=== PATIENT | male | born 1950 | race African-American/Black ===

== ENCOUNTER 2016-11-08 20:06 | Inpatient (IN) | payer OTHER, MEDICARE ==
[2016-11-08] VITALS (8 sets, daily range): BP systolic 106–209; BP diastolic 67–112; PULSE 80–129; RESP 12–14; TEMP 95.3; O2SAT 100
[~2016-11-08] VITALS: Ht 175.3 cm; Wt 54.8 kg
[~2016-11-08 20:06] MED LIST: AMLO10 PO; ASPI81TA82 PO; CARV12.52 PO; FURO20 PO; GABA300C3 PO; HYDR10SO PO; NITR0.4D2 TD; NOVO70IN2 SC; PROT40TA PO; TYLE500T
[2016-11-08] MEDS ORDERED: ETOMIDATE 20 MG/10 ML VIAL IV PUSH ONE (20:15)
[2016-11-08] MEDS ORDERED: ROCURONIUM INJ 50 MG/5 ML VIAL IV ONE (20:15)
[2016-11-08] MEDS: PROPOFOL 1000 MG/100 ML INJ 100 ML IV SCH (20:23)
[2016-11-08] MEDS ORDERED: NITROGLYCERIN-DEXTROSE INJ 250 ML IV SCH (20:30)
--- NOTE | 2016-11-08 20:44 | PD ---
HPI Chief Complaint: Cardiac Complaint Time Seen by Provider: 20:10 Travel History International Travel<30 days: No Contact w/Intl Traveler<30days: No Traveled to known affect area: No History of Present Illness HPI 66-year-old male was brought in by EMS for respiratory distress and altered mental status. Patient started having shortness of breath this morning. EMS was called this evening. Patient was found tachypneic and lethargic. Patient started having increasing lethargy on the way to the ED. Upon arrival to ED patient unable to provide any information, in respiratory distress. Patient has history of end-stage renal disease on dialysis Friday and and Friday. 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 Per EMS, patient has not missed his dialysis schedule. Patient has history of diabetes, hypertension And CHF. PFSH Past Medical History Arthritis: Yes Asthma: No Autoimmune Disease: No Blood Disorders: No Heart Rhythm Problems: No Cancer: No Cardiovascular Problems: Yes (OK 10/2013, CHF) High Cholesterol: Yes Chest Pain: No Congestive Heart Failure: Yes COPD: Yes Cerebrovascular Accident: No Diabetes: Yes (INSULIN DEPENDENT) Patient Takes Glucophage: No Endocrine: Yes Gastrointestinal Disorders: No GERD: No Glaucoma: No Gout: Yes Genitourinary: Yes Headaches: Yes Hepatitis: No Hiatal Hernia: No Hypertension: Yes Immune Disorder: No Implanted Vascular Access Dvce: No Kidney Stones: Yes Medical other: No Musculoskeletal: Yes (ARTHRITIS, NECK PROBLEMS) Neurologic: Yes (NEUROPATHY HANDS AND FEET) Psychiatric: No Reproductive: No Respiratory: Yes (COPD) Integumentary: No Migraines: Yes Myocardial Infarction: Yes (2012) Renal Failure: Yes (STAGE 4-PT OF DR. FRANKLIN) Seizures: No Sleep Apnea: No Thyroid Disease: No Ulcer: No Past Surgical History AICD: No Arteriovenous Shunt: Yes (RIGHT ARM) Body Medical Devices: DIALYSIS CATHETER IN CHEST Joint Replacement: No Pacemaker: No Thoracic Surgery: Yes (DIALYSIS CATHETER INSERTED 01/2014) Tonsillectomy: Yes Other Surgery: Yes (PERMACATH/FISTULA) Social History Alcohol Use: No (UNABLE TO OBTAIN) Tobacco Use: Yes (PACK A DAY ) Substance Use: No (UNABLE TO OBTAIN) Allergies-Medications (Allergen,Severity, Reaction): Coded Allergies: No Known Allergies (Verified , 11/08/16) Reported Meds & Prescriptions Reported Meds & Active Scripts Active Active Prescriptions or Reported Medications Unobtainable Review of Systems General / Constitutional: No: Fever Eyes: No: Visual changes HENT: No: Headaches Cardiovascular: No: Chest Pain or Discomfort Respiratory: Positive: Shortness of Breath Gastrointestinal: No: Abdominal Pain Genitourinary: No: Dysuria Musculoskeletal: No: Pain Skin: No Rash Neurologic: No: Weakness Psychiatric: No: Depression Endocrine: No: Polydipsia Hematologic/Lymphatic: No: Easy Bruising Physical Exam Narrative GENERAL: Well-nourished, well-developed patient. SKIN: Warm and dry. HEAD: Normocephalic. EYES: No scleral icterus. No injection or drainage. Pupil 3 mm equal reactive. NECK: Supple, trachea midline. No JVD or lymphadenopathy. CARDIOVASCULAR: Regular rate and rhythm without murmurs, gallops, or rubs. RESPIRATORY: Diffuse rhonchi bilaterally. No wheezes. GASTROINTESTINAL: Abdomen soft, non-tender, nondistended. MUSCULOSKELETAL: No cyanosis, or edema. BACK: Nontender without obvious deformity. No CVA tenderness. Neurologic exam: Patient's lethargic, becoming obtunded, in respiratory distress. Patient moves extremity minimally. No obvious focal neurological deficit. Data Data Last Documented VS Vital Signs Date Time Temp Pulse Resp B/P Pulse Ox O2 Delivery O2 Flow Rate FiO2 11/08/16 23:00 90 12 106/67 100 Ventilator 11/08/16 20:56 40 11/08/16 20:08 95.3 Orders Etomidate Inj (Amidate Inj) (11/08/16 20:15) Rocuronium Inj (Zemuron Inj) (11/08/16 20:15) Propofol 1000 Mg/100 Ml Inj (Diprivan 10 (11/08/16 20:15) ^ Infusion (11/08/16 20:10) RASS (11/08/16 20:10) Neurological Rass Scale HERMILO.Q2H (11/08/16 20:10) Complete Blood Count With Diff (11/08/16 20:11) Comprehensive Metabolic Panel (11/08/16 20:11) Creatine Kinase (Cpk) (11/08/16 20:11) Troponin I (11/08/16 20:11) Prothrombin Time / Inr (Pt) (11/08/16 20:11) Act Partial Throm Time (Ptt) (11/08/16 20:11) Blood Culture (11/08/16 20:11) Magnesium (Mg) (11/08/16 20:11) Thyroid Stimulating Hormone (11/08/16 20:11) Phosphorus (Po4) (11/08/16 20:11) Chest, Single Ap (11/08/16 20:11) Iv Access Insert/Monitor (11/08/16 20:11) Ecg Monitoring (11/08/16 20:11) Oximetry (11/08/16 20:11) Nitroglycerin-Dextrose Inj (Nitroglyceri (11/08/16 20:30) Arterial Blood Gas (Abg) (11/08/16 ) Ct Brain W/O Iv Contrast(Rout) (11/08/16 20:43) Electrocardiogram (11/08/16 20:15) ^ Blood Flow Rate (11/08/16 21:11) ^ Dialysate Flow Rate (11/08/16 21:11) ^ Dialyzer (11/08/16 21:11) ^ Concentrate (11/08/16 21:11) ^ Acid Concentrate (11/08/16 21:11) ^ Length Of Dialysis (11/08/16 21:11) ^ Frequency Of Dialysis (11/08/16 21:11) ^ Dialysis Obtain (11/08/16 21:11) ^ Needle Size (11/08/16 21:11) ^ Dialysis Schedule (11/08/16 21:11) Resp Oxygen Campos C Titrat 1-4 L (11/08/16 ) ^ Dialysis Weight (11/08/16 21:11) ^ Obtain As Needed (11/08/16 21:11) Sodium Chlor 0.9% 1000 Ml Inj (Ns 1000 M (11/08/16 21:11) Heparin Inj (Heparin Inj) (11/08/16 21:15) Sodium Chlor 0.9% 1000 Ml Inj (Ns 1000 M (11/08/16 21:11) Sodium Chlor 0.9% 1000 Ml Inj (Ns 1000 M (11/08/16 21:11) Mannitol Inj (Mannitol Inj) (11/08/16 21:15) Albumin 25% Inj (Albumin 25% Inj) (11/08/16 21:15) Sodium Chloride 0.9% Flush (Ns Flush) (11/08/16 21:15) Heparin Inj (Heparin Inj) (11/08/16 21:15) Gentamicin (Dialysis) Inj (Gentamicin (D (11/08/16 21:15) Ondansetron Inj (Zofran Inj) (11/08/16 21:15) Acetaminophen (Tylenol) (11/08/16 21:15) Diphenhydramine (Benadryl) (11/08/16 21:15) Nitroglycerin Sl (Nitrostat Sl) (11/08/16 21:15) Clonidine (Catapres) (11/08/16 21:15) Gelatin 12 Mm/7 Mm Top (Gelfoam 12 Mm/7 (11/08/16 21:15) Neurological Rass Scale Q30MX2,Q2HX4,Q4H (11/08/16 23:04) Fentanyl Drip (Fentanyl Drip) (11/08/16 23:15) Fentanyl Drip (Fentanyl Drip) (11/08/16 23:23) Midazolam Inj (Versed Inj) (11/08/16 23:45) Neurological Rass Scale Q30MX2,Q2HX4,Q4H (11/08/16 23:42) Midazolam Inj (Versed Inj) (11/08/16 23:42) Admit To Inpatient (11/08/16 ) Inpatient Certification (11/08/16 ) Code Status (11/08/16 23:45) Vital Signs (Adult) HERMILO.Q1H (11/08/16 23:45) Activity Bed Rest (11/08/16 23:45) ^ Core Shaper / Telemetry (11/08/16 23:45) Intake + Output HERMILO.Q8H (11/08/16 23:45) Bedside Glucose HERMILO.BGM (11/08/16 23:45) Diet Npo (11/09/16 Breakfast) Sodium Chloride 0.9% Flush (Ns Flush) (11/08/16 23:45) Sodium Chloride 0.9% Flush (Ns Flush) (11/09/16 09:00) Acetaminophen (Tylenol) (11/08/16 23:45) Albuterol-Ipratropium Neb (Duoneb Neb) (11/09/16 04:00) Albuterol-Ipratropium Neb (Duoneb Neb) (11/08/16 23:45) Chlorhexidine 0.12% Liq (Peridex 0.12% L (11/09/16 08:00) Lansoprazole Odt (Prevacid Odt) (11/09/16 09:00) Complete Blood Count With Diff (11/09/16 06:00) Comprehensive Metabolic Panel (11/09/16 06:00) Chest, Single Ap (11/09/16 06:00) Resp Pulse Oximetry (11/08/16 ) Resp Ventilation- Volume (11/08/16 ) Consult Cm-Day 5 Ltac Eval (11/08/16 ) Heparin Inj (Heparin Inj) (11/08/16 23:45) Scd Bilateral/Knee High HERMILO.BID (11/08/16 23:45) ^ Initiate Protocol (11/08/16 23:45) ^ Instruction (11/08/16 23:45) [facility] Nursing Information (11/08/16 23:45) Chlorhexidine 2% Cloth (Chlorhexidine 2% (11/09/16 04:00) Chlorhexidine 2% Cloth (Chlorhexidine 2% (11/08/16 23:45) Mrsa Pcr Surveillance (11/08/16 23:45) Propofol 1000 Mg/100 Ml Inj (Diprivan 10 (11/08/16 23:45) ^ Infusion (11/08/16 23:45) Ventilator Weaning Readiness HERMILO.DAILY@0800 (11/08/16 23:51) Resp Spont Breath Trial (Sbt) (11/08/16 ) Midazolam Inj (Versed Inj) (11/09/16 00:00) Hydralazine Inj (Apresoline Inj) (11/09/16 00:00) Admit Order (Ed Use Only) (11/08/16 23:53) Labs Laboratory Tests Test 11/08/16 11/08/16 20:30 20:50 White Blood Count 11.8 TH/MM3 Red Blood Count 3.91 MIL/MM3 Hemoglobin 12.7 GM/DL Hematocrit 38.1 % Mean Corpuscular Volume 97.3 FL Mean Corpuscular Hemoglobin 32.4 PG Mean Corpuscular Hemoglobin 33.3 % Concent Red Cell Distribution Width 13.9 % Platelet Count 111 TH/MM3 Mean Platelet Volume 10.0 FL Neutrophils (%) (Auto) 56.4 % Lymphocytes (%) (Auto) 33.0 % Monocytes (%) (Auto) 8.1 % Eosinophils (%) (Auto) 1.9 % Basophils (%) (Auto) 0.6 % Neutrophils # (Auto) 6.6 TH/MM3 Lymphocytes # (Auto) 3.9 TH/MM3 Monocytes # (Auto) 1.0 TH/MM3 Eosinophils # (Auto) 0.2 TH/MM3 Basophils # (Auto) 0.1 TH/MM3 CBC Comment DIFF FINAL Differential Comment Prothrombin Time 12.5 SEC Prothromb Time International 1.1 RATIO Ratio Activated Partial 28.7 SEC Thromboplast Time Sodium Level 142 MEQ/L Potassium Level 4.9 MEQ/L Chloride Level 103 MEQ/L Carbon Dioxide Level 27.3 MEQ/L Anion Gap 12 MEQ/L Blood Urea Nitrogen 43 MG/DL Creatinine 4.72 MG/DL Estimat Glomerular Filtration 15 ML/MIN Rate Random Glucose 201 MG/DL Calcium Level 8.7 MG/DL Phosphorus Level 5.6 MG/DL Magnesium Level 2.3 MG/DL Total Bilirubin 0.5 MG/DL Aspartate Amino Transf 34 U/L (AST/SGOT) Alanine Aminotransferase 29 U/L (ALT/SGPT) Alkaline Phosphatase 91 U/L Total Creatine Kinase 150 U/L Troponin I 0.13 NG/ML Total Protein 8.0 GM/DL Albumin 3.4 GM/DL Thyroid Stimulating Hormone 5.600 uIU/ML 3rd Gen Blood Gas Puncture Site RT FEMORAL Blood Gas Patient Temperature 98.6 Blood Gas HCO3 27 mmol/L Blood Gas Base Excess 0.1 mmol/L Blood Gas Oxygen Saturation 92 % Arterial Blood pH 7.22 Arterial Blood Partial 68 mmHg Pressure CO2 Arterial Blood Partial 392 mmHG Pressure O2 Arterial Blood Oxygen Content 16.3 Vol % Arterial Blood 5.7 % Carboxyhemoglobin Arterial Blood Methemoglobin 1.8 % Blood Gas Hemoglobin 11.8 G/DL Oxygen Delivery Device VENTILATOR Blood Gas Ventilator Setting AC12/450 8 PEEP Blood Gas Inspired Oxygen 80 % MDM Medical Decision Making Medical Screen Exam Complete: Yes Emergency Medical Condition: Yes Medical Record Reviewed: Yes Differential Diagnosis Differential diagnosis including CHF, pneumonia, PE, pneumothorax, TIA, CVA, electrolyte imbalance, sepsis. Narrative Course 66-year-old male in respiratory distress and altered mental status. History of end-stage renal disease on dialysis. Physical exam consistent with fluid overload and CHF. Patient's hypertensive. Patient was intubated. Nitro drip started. Architecture Department Chair, Dr. Cali was contacted. Requesting emergent dialysis. Diagnosis Primary Impression: Acute respiratory failure Qualified Code: J96.00 - Acute respiratory failure, unspecified whether with hypoxia or hypercapnia Additional Impressions: CHF exacerbation Qualified Code: I50.43 - Acute on chronic combined systolic and diastolic congestive heart failure End stage renal disease on dialysis Scripts Unable to Obtain Active Prescriptions or Reported Meds Milton Piedra MD Nov 08, 2016 20:44
--- NOTE | 2016-11-08 20:46 | RADRPT ---
EXAM DATE/TIME: 11/08/2016 20:12 [facility] COMPARISON: CHEST SINGLE AP, September 21, 2015, 5:27. INDICATIONS : SOB MEDICAL HISTORY : None. SURGICAL HISTORY : Stent placement. ENCOUNTER: Initial ACUITY: 1 day PAIN SCORE: Non-responsive. LOCATION: chest FINDINGS: A single view of the chest demonstrates the lungs to be symmetrically aerated without evidence of mas s, infiltrate or effusion. A few scattered nodular densities in the upper lobes may be calcified gran ulomas. 4 cm above the luis. The cardiomediastinal contours are unremarkable. Osseous structures a re intact. Right-sided stent again seen. CONCLUSION: Adequate placement of endotracheal tube. A few scattered nodular densities are seen in the upper lobe s may be calcified granulomas. Jimbo Xiong MD on November 08, 2016 at 20:42 Board Certified Radiologist. This report was verified electronically.
[2016-11-08] MEDS: HEPARIN SODIUM - SQ 10,000 UNITS/ML VIAL SQ SCH (21:00)
[2016-11-08 21:07] LABS: APTT (PATIENT) 28.7 SEC (24.3-30.1); INTERNATIONAL NORMALIZED RATIO 1.1 RATIO; PROTHROMBIN TIME - PATIENT 12.5 SEC (9.8-11.6)
[2016-11-08] MEDS ORDERED: SODIUM CHLOR 0.9% 1000 ML INJ 1,000 ML IV PRN ×3 (21:11)
[2016-11-08] MEDS ORDERED: ACETAMINOPHEN 325 MG TAB PO PRN ×2 (21:15→23:45)
[2016-11-08] MEDS ORDERED: ALBUMIN HUMAN 25% 25 GM/100 ML BAGP IV PRN (21:15)
[2016-11-08] MEDS ORDERED: diphenhydrAMINE HCL 25 MG CAP PO PRN (21:15)
[2016-11-08] MEDS ORDERED: MANNITOL 12.5 GM/50 ML VIAL IV PRN (21:15)
[2016-11-08] MEDS ORDERED: HEPARIN SODIUM - IV 10,000 UNITS/10 ML VIAL PRN (21:15)
[2016-11-08] MEDS ORDERED: GELATIN 12 MM/7 MM FOAM TOP PRN (21:15)
[2016-11-08] MEDS ORDERED: GENTAMICIN SULFATE (DIALYSIS USE ONLY) 20 MG/2 ML VIAL IV PRN (21:15)
[2016-11-08] MEDS ORDERED: HEPARIN SODIUM - IV 10,000 UNITS/10 ML VIAL IVF PRN (21:15)
[2016-11-08] MEDS ORDERED: NITROGLYCERIN 0.4 MG SL 25 TABS/BTL SL PRN (21:15)
[2016-11-08] MEDS ORDERED: cloNIDine HCL 0.1 MG TAB PO PRN (21:15)
[2016-11-08] MEDS ORDERED: SODIUM CHLORIDE 0.9% FLUSH 5 ML FLUSH IVF PRN ×2 (21:15→23:45)
[2016-11-08 21:19] LABS: AUTOMATED NEUTROPHIL # 6.6 TH/MM3 (1.8-7.7); BASOPHIL # 0.1 TH/MM3 (0-0.2); BASOPHIL % 0.6 % (0.0-2.0); EOSINOPHIL # 0.2 TH/MM3 (0-0.4); EOSINOPHIL % 1.9 % (0.0-4.0); HEMATOCRIT 38.1 % (39.0-51.0); HEMO FLAGS DIFF FINAL; LYMPHOCYTE # 3.9 TH/MM3 (1.0-4.8); MEAN CELL VOLUME 97.3 FL (80.0-100.0); MEAN CORPUSCULAR HEMOGLOBIN 32.4 PG (27.0-34.0); MEAN CORPUSCULAR HGB CONC 33.3 % (32.0-36.0); MONO % 8.1 % (0.0-8.0); NEUT % 56.4 % (16.0-70.0); PLATELET COUNT 111 TH/MM3 (150-450); RED BLOOD COUNT 3.91 MIL/MM3 (4.50-5.90); RED CELL DISTRIBUTION WIDTH 13.9 % (11.6-17.2); WHITE BLOOD COUNT 11.8 TH/MM3 (4.0-11.0)
[2016-11-08 21:23] LABS: ANION GAP 12 MEQ/L (5-15); BICARBONATE 27.3 MEQ/L (21.0-32.0); BLOOD UREA NITROGEN 43 MG/DL (7-18); CHLORIDE 103 MEQ/L (98-107); GLOMERULAR FILTRATION RATE 15 ML/MIN (>89); MAGNESIUM 2.3 MG/DL (1.5-2.5); POTASSIUM 4.9 MEQ/L (3.5-5.1); SODIUM (NA) 142 MEQ/L (136-145)
[2016-11-08 21:34] LABS: ALKALINE PHOSPHATASE 91 U/L (45-117); ALT (GPT) 29 U/L (12-78); AST (GOT) 34 U/L (15-37); CREATINE KINASE 150 U/L (39-308); TOTAL BILIRUBIN ADULT 0.5 MG/DL (0.2-1.0)
[2016-11-08 21:50] LABS: BLOOD GAS BASE EXCESS 0.1 mmol/L (-2-2); BLOOD GAS CARBOXYHEMOGLOBIN 5.7 % (0-4); BLOOD GAS HCO3 27 mmol/L (22-26); BLOOD GAS METHEMOGLOBIN 1.8 % (0-2); BLOOD GAS O2 HGB SATURATION 92 % (90-100); BLOOD GAS OXYGEN CONTENT 16.3 Vol % (12.0-20.0); BLOOD GAS PCO2 68 mmHg (38-42); BLOOD GAS PO2 392 mmHG (61-120); BLOOD GAS TOTAL HGB 11.8 G/DL (12.0-16.0); CRITICAL VALUE YES; DRAW SITE RT FEMORAL; FIO2 80 %; NUMBER OF ARTERIAL PUNCTURES 1; OXYGEN DEVICE VENTILATOR; STAT YES; TEMP CORR TO 98.6; VENT SETTINGS AC12/450 8 PEEP
--- NOTE | 2016-11-08 22:39 | PD.CONS ---
HPI Service Nephrology Consult Requested By Dr. Piedra Reason for Consult ESRD Pulmonary edema Primary Care Physician Non-Staff History of Present Illness 66 year old black male with Hypertension, ESRD, CHF who is on dialysis T,T S, received hemodialysis yesterday presented with increasing shortness of breath and required intubation, he is hypertensive crises and was started on Nitroglycerine drip as well. Review of Systems ROS Limitations: Clinical Condition Past Family Social History Allergies: Coded Allergies: No Known Allergies (Verified , 11/08/16) Past Medical History Hypertension Daibetes Hep C ESRD Respiratory failure Anemia CHF Pulmonary edema previous intubation Past Surgical History Right arm AVF Reported Medications Reported Meds & Active Scripts Active Active Prescriptions or Reported Medications Unobtainable Active Ordered Medications Current Medications Medications (Trade) Dose Ordered Sig/Delvis Route Start Time Stop Time Status Last Admin Propofol 100 ml @ 0 mls/hr TITRATE IV 11/08/16 20:15 11/08/16 20:23 Nitroglycerin/ Dextrose 250 ml @ 0 mls/hr TITRATE IV 11/08/16 20:30 11/08/16 20:43 (NS 1000 ml Inj) 1,000 ml @ 0 mls/hr Q0M PRN IV 11/08/16 21:11 Heparin Sodium (Porcine) 8000 units 8,000 units UNSCH PRN IVF 11/08/16 21:15 Sodium Chloride 1,000 ml @ 200 mls/hr Q5H PRN IV 11/08/16 21:11 (NS 1000 ml Inj) 1,000 ml @ 0 mls/hr Q0M PRN IV 11/08/16 21:11 (Mannitol Inj) 12.5 gm UNSCH PRN IV 11/08/16 21:15 (Albumin 25% Inj) 25 gm UNSCH PRN IV 11/08/16 21:15 (NS Flush) 5 ml UNSCH PRN IVF 11/08/16 21:15 (Heparin Inj) UNSCH PRN .XX 11/08/16 21:15 (Gentamicin (Dialysis) Inj) 20 mg UNSCH PRN IV 11/08/16 21:15 (Zofran Inj) 4 mg UNSCH PRN IV 11/08/16 21:15 (Tylenol) 650 mg UNSCH PRN PO 11/08/16 21:15 (Benadryl) 25 mg UNSCH PRN PO 11/08/16 21:15 (Nitrostat Sl) 0.4 mg UNSCH PRN SL 11/08/16 21:15 (Catapres) 0.1 mg UNSCH PRN PO 11/08/16 21:15 (Gelfoam 12 Mm/7 Mm Top) 1 foam UNSCH PRN TOP 11/08/16 21:15 Family History noncontributory Social History as noted 1PPD Smoking Physical Exam Vital Signs Vital Signs Date Time Temp Pulse Resp B/P Pulse Ox O2 Delivery O2 Flow Rate FiO2 11/08/16 20:56 95 12 179/105 100 Ventilator 40 11/08/16 20:17 129 14 209/112 100 Ventilator 11/08/16 20:17 40 11/08/16 20:16 100 Ventilator 11/08/16 20:15 100 80 11/08/16 20:08 95.3 84 14 173/107 Physical Exam GENERAL: Well-nourished, well-developed patient. SKIN: Warm and dry. HEAD: Normocephalic. EYES: No scleral icterus. No injection or drainage. NECK: Supple, trachea midline. No JVD or lymphadenopathy. CARDIOVASCULAR: Tachycardia RESPIRATORY: Breath sounds decreased at bases GASTROINTESTINAL: Abdomen soft, non-tender, nondistended. EXTREMITIES: No cyanosis, or edema. NEUROLOGICAL: Awake, alert, and oriented x 3. Non-focal. Laboratory Laboratory Tests Test 11/08/16 11/08/16 20:30 20:50 White Blood Count 11.8 Red Blood Count 3.91 Hemoglobin 12.7 Hematocrit 38.1 Mean Corpuscular Volume 97.3 Mean Corpuscular Hemoglobin 32.4 Mean Corpuscular Hemoglobin 33.3 Concent Red Cell Distribution Width 13.9 Platelet Count 111 Mean Platelet Volume 10.0 Neutrophils (%) (Auto) 56.4 Lymphocytes (%) (Auto) 33.0 Monocytes (%) (Auto) 8.1 Eosinophils (%) (Auto) 1.9 Basophils (%) (Auto) 0.6 Neutrophils # (Auto) 6.6 Lymphocytes # (Auto) 3.9 Monocytes # (Auto) 1.0 Eosinophils # (Auto) 0.2 Basophils # (Auto) 0.1 CBC Comment DIFF FINAL Differential Comment Prothrombin Time 12.5 Prothromb Time International 1.1 Ratio Activated Partial 28.7 Thromboplast Time Sodium Level 142 Potassium Level 4.9 Chloride Level 103 Carbon Dioxide Level 27.3 Anion Gap 12 Blood Urea Nitrogen 43 Creatinine 4.72 Estimat Glomerular Filtration 15 Rate Random Glucose 201 Calcium Level 8.7 Phosphorus Level 5.6 Magnesium Level 2.3 Total Bilirubin 0.5 Aspartate Amino Transf 34 (AST/SGOT) Alanine Aminotransferase 29 (ALT/SGPT) Alkaline Phosphatase 91 Total Creatine Kinase 150 Troponin I 0.13 Total Protein 8.0 Albumin 3.4 Thyroid Stimulating Hormone 5.600 3rd Gen Blood Gas Puncture Site RT FEMORAL Blood Gas Patient Temperature 98.6 Blood Gas HCO3 27 Blood Gas Base Excess 0.1 Blood Gas Oxygen Saturation 92 Arterial Blood pH 7.22 Arterial Blood Partial 68 Pressure CO2 Arterial Blood Partial 392 Pressure O2 Arterial Blood Oxygen Content 16.3 Arterial Blood 5.7 Carboxyhemoglobin Arterial Blood Methemoglobin 1.8 Blood Gas Hemoglobin 11.8 Oxygen Delivery Device VENTILATOR Blood Gas Ventilator Setting AC12/450 8 PEEP Blood Gas Inspired Oxygen 80 Date/Time Procedure Status Source Growth 11/08/16 20:35 Aerobic Blood Culture Received Blood Peripheral Pending 11/08/16 20:35 Anaerobic Blood Culture Received Blood Peripheral Pending Result Diagram: 11/08/16202911/08/162029 Imaging Last Impressions Chest X-Ray 11/08/162010 Signed Impressions: Service Date/Time: Tuesday, November 08, 2016 20:12 - CONCLUSION: Adequate placement of endotracheal tube. A few scattered nodular densities are seen in the upper lobes may be calcified granulomas. Jimbo Xiong MD Assessment and Plan Problem List: (1) End stage renal disease on dialysis Plan: patient seen during dialysis UF 2 TO 5 L as tolerated follow BP try to extubate follow with Dr. Mohamud who stated he had dialysis yesterday. (2) Accelerated essential hypertension Plan: on Nitro drip and dialysis (3) Respiratory failure Plan: monitor Critical care to follow (4) Hypertension Plan: accelerated (5) congestive heart Plan: intubated and on dialysis (6) Diabetes mellitus, type 2 Plan: follow BG (7) Respiratory acidosis Problem Qualifiers (1) Respiratory failure: (2) Hypertension: Qualified Code: I10 - Essential hypertension Christopher Cali MD Nov 08, 2016 22:39
[2016-11-08] MEDS ORDERED: fentaNYL DRIP 250 ML IV SCH (23:15)
[2016-11-08] MEDS ORDERED: fentaNYL DRIP 250 ML ONE (23:23)
[2016-11-08] MEDS ORDERED: MIDAZOLAM HCL 5 MG/ML VIAL (1 ML) ONE (23:42)
[2016-11-08] MEDS ORDERED: CHLORHEXIDINE GLUCONATE 2 % 1 PACK (2 CLOTHS) TOP PRN (23:45)
[2016-11-08] MEDS ORDERED: RESP: ALBUTEROL 2.5 MG/IPRATROPIUM 0.5 MG NEB (PRN) INH (23:45)
[2016-11-08] MEDS ORDERED: MIDAZOLAM 100 MG/ML INJ 100 ML IV SCH (23:45)
[2016-11-08] MEDS ORDERED: PROPOFOL 1000 MG/100 ML INJ 100 ML IV SCH (23:45)
[2016-11-08] MEDS ORDERED: MISCELLANEOUS NURSING INFORMATION XX SCH (23:45)
[2016-11-09] VITALS (20 sets, daily range): BP systolic 103–176; BP diastolic 62–85; PULSE 51–81; RESP 12–20; TEMP 97.7–98.8; O2SAT 97–100
[2016-11-09] MEDS ORDERED: DEXTROSE 50% IN WATER 50 ML VIAL(D50) IV PRN
[2016-11-09] MEDS ORDERED: MIDAZOLAM HCL 5 MG/ML VIAL (1 ML) IVP ONE
[2016-11-09] MEDS ORDERED: SODIUM CHLORIDE 0.9% FLUSH 5 ML FLUSH IVF PRN
[2016-11-09] MEDS ORDERED: hydrALAZINE HCL 20 MG/ML VIAL IV PUSH PRN
[2016-11-09] MEDS ORDERED: GLUCAGON 1 MG/ML VIAL IM/SQ PRN
[2016-11-09] MEDS: HEPARIN SODIUM - SQ 10,000 UNITS/ML VIAL SQ SCH ×3 (00:16→21:22)
--- NOTE | 2016-11-09 01:06 | HHI.HP ---
HPI Service Critical Care Medicine Primary Care Physician Non-Staff Admission Diagnosis RESPIRATORY FAILURE. CHF. Diagnosis: Chief Complaint: Shortness of breath Travel History International Travel<30 Days: No Contact w/Intl Traveler <30 Da: No Traveled to Known Affected Are: No History of Present Illness HPI 66-year-old male was brought in by EMS for respiratory distress and altered mental status. Patient started having shortness of breath this morning. EMS was called this evening. Patient was found tachypneic and lethargic. Patient started having increasing lethargy on the way to the ED. Upon arrival to ED patient unable to provide any information, in respiratory distress. Patient has history of end-stage renal disease on dialysis Friday and and Friday. Per EMS, patient has not missed his dialysis schedule. Patient has history of diabetes, hypertension and CHF. He he has been admitted to the following intubation for pulmonary edema on multiple occasions. Patient was noted to have a systolic blood pressure in the 200s on arrival and was in pulmonary edema. He was emergently intubated and placed on mechanical ventilation by ER physician. Subsequently he was evaluated by nephrology and is undergoing emergent hemodialysis with plan for removal of 2 L of fluid. Patient was accepted for admission by critical care medicine service. When I evaluated the patient he was sedated, orally intubated on mechanical ventilation. History was obtained by reviewing records and discussion with Dr. Piedra. [facility] Past Medical History Arthritis: Yes Asthma: No Autoimmune Disease: No Blood Disorders: No Heart Rhythm Problems: No Cancer: No Cardiovascular Problems: Yes ([place] 10/2013, CHF) High Cholesterol: Yes Chest Pain: No Congestive Heart Failure: Yes COPD: Yes Cerebrovascular Accident: No Diabetes: Yes (INSULIN DEPENDENT) Patient Takes Glucophage: No Endocrine: Yes Gastrointestinal Disorders: No GERD: No Glaucoma: No Gout: Yes Genitourinary: Yes Headaches: Yes Hepatitis: No Hiatal Hernia: No Hypertension: Yes Immune Disorder: No Implanted Vascular Access Dvce: No Kidney Stones: Yes Medical other: No Musculoskeletal: Yes (ARTHRITIS, NECK PROBLEMS) Neurologic: Yes (NEUROPATHY HANDS AND FEET) Psychiatric: No Reproductive: No Respiratory: Yes (COPD) Integumentary: No Migraines: Yes Myocardial Infarction: Yes (2012) Renal Failure: Yes (STAGE 4-PT OF DR. MOHAMUD) Seizures: No Sleep Apnea: No Thyroid Disease: No Ulcer: No Past Surgical History AICD: No Arteriovenous Shunt: Yes (RIGHT ARM) Body Medical Devices: DIALYSIS CATHETER IN CHEST Joint Replacement: No Pacemaker: No Thoracic Surgery: Yes (DIALYSIS CATHETER INSERTED 01/2014) Tonsillectomy: Yes Other Surgery: Yes (PERMACATH/FISTULA) Social History Alcohol Use: No (UNABLE TO OBTAIN) Tobacco Use: Yes (PACK A DAY ) Substance Use: No (UNABLE TO OBTAIN) Allergies-Medications (Allergen,Severity, Reaction): Coded Allergies: No Known Allergies (Verified , 11/08/16) Reported Meds & Prescriptions Reported Meds & Active Scripts Active Active Prescriptions or Reported Medications Unobtainable Review of Systems Unobtainable as patient is sedated, orally intubated on mechanical ventilation. Physical Exam Vital Signs Vital Signs Date Time Temp Pulse Resp B/P Pulse Ox O2 Delivery O2 Flow Rate FiO2 11/08/16 23:00 90 12 106/67 100 Ventilator 11/08/16 22:00 90 12 164/96 100 Ventilator 11/08/16 21:00 80 12 185/101 100 Ventilator 11/08/16 20:56 95 12 179/105 100 Ventilator 40 11/08/16 20:17 129 14 209/112 100 Ventilator 11/08/16 20:17 40 11/08/16 20:16 100 Ventilator 11/08/16 20:15 100 80 11/08/16 20:08 95.3 84 14 173/107 Physical Exam HEENT/ Neuro: Sedated, orally intubated, Pallor present, no icterus, tongue/ mucosa moist Neck: No JVD Chest/Pulm: on mech vent, good air entry bilaterally, no wheezing or crackles CVS: S1-S2 regular, no murmur GI/abdomen: soft, nontender, bowel sounds sluggish Extremities: warm bilaterally, no edema Laboratory Laboratory Tests Test 11/08/16 11/08/16 20:30 20:50 White Blood Count 11.8 Red Blood Count 3.91 Hemoglobin 12.7 Hematocrit 38.1 Mean Corpuscular Volume 97.3 Mean Corpuscular Hemoglobin 32.4 Mean Corpuscular Hemoglobin 33.3 Concent Red Cell Distribution Width 13.9 Platelet Count 111 Mean Platelet Volume 10.0 Neutrophils (%) (Auto) 56.4 Lymphocytes (%) (Auto) 33.0 Monocytes (%) (Auto) 8.1 Eosinophils (%) (Auto) 1.9 Basophils (%) (Auto) 0.6 Neutrophils # (Auto) 6.6 Lymphocytes # (Auto) 3.9 Monocytes # (Auto) 1.0 Eosinophils # (Auto) 0.2 Basophils # (Auto) 0.1 CBC Comment DIFF FINAL Differential Comment Prothrombin Time 12.5 Prothromb Time International 1.1 Ratio Activated Partial 28.7 Thromboplast Time Sodium Level 142 Potassium Level 4.9 Chloride Level 103 Carbon Dioxide Level 27.3 Anion Gap 12 Blood Urea Nitrogen 43 Creatinine 4.72 Estimat Glomerular Filtration 15 Rate Random Glucose 201 Calcium Level 8.7 Phosphorus Level 5.6 Magnesium Level 2.3 Total Bilirubin 0.5 Aspartate Amino Transf 34 (AST/SGOT) Alanine Aminotransferase 29 (ALT/SGPT) Alkaline Phosphatase 91 Total Creatine Kinase 150 Troponin I 0.13 Total Protein 8.0 Albumin 3.4 Thyroid Stimulating Hormone 5.600 3rd Gen Blood Gas Puncture Site RT FEMORAL Blood Gas Patient Temperature 98.6 Blood Gas HCO3 27 Blood Gas Base Excess 0.1 Blood Gas Oxygen Saturation 92 Arterial Blood pH 7.22 Arterial Blood Partial 68 Pressure CO2 Arterial Blood Partial 392 Pressure O2 Arterial Blood Oxygen Content 16.3 Arterial Blood 5.7 Carboxyhemoglobin Arterial Blood Methemoglobin 1.8 Blood Gas Hemoglobin 11.8 Oxygen Delivery Device VENTILATOR Blood Gas Ventilator Setting AC12/450 8 PEEP Blood Gas Inspired Oxygen 80 Date/Time Procedure Status Source Growth 11/08/16 20:35 Aerobic Blood Culture Received Blood Peripheral Pending 11/08/16 20:35 Anaerobic Blood Culture Received Blood Peripheral Pending Result Diagram: 11/08/16202911/08/162029 Imaging Last Impressions Chest X-Ray 11/08/162010 Signed Impressions: Service Date/Time: Tuesday, November 08, 2016 20:12 - CONCLUSION: Adequate placement of endotracheal tube. A few scattered nodular densities are seen in the upper lobes may be calcified granulomas. Jimbo Xiong MD Assessment and Plan Assessment and Plan Assessment : Pulmonary edema Hypertensive crisis Acute respiratory failure on mechanical ventilation End-stage renal disease on hemodialysis Diabetes mellitus Hypertension Coronary artery disease status post previous [place] Arthritis Plan: Neuro: Sedation with Versed/fentanyl as needed. Daily sedation vacation. Follow neuro status. Cardiovascular: Fluid removal with emergent hemodialysis. Hydralazine when necessary for systolic blood pressure greater than 160 mmHg. resume by mouth antihypertensives in a.m. Currently blood pressure well controlled on sedation and he is off nitroglycerin drip. Pulmonary: On mechanical ventilation, vent bundle, bronchodilators as needed. Daily C Pap trials to decide extubation. GI/liver: Nothing by mouth for now. If not extubated in a.m., start tube feeds Renal/: Hemodialysis per nephrology. Being emergently dialyzed currently with plan to remove 2 L fluid. Has been seen by Dr. Mohamud. ID: Blood culture obtained. Doubt sepsis. No antibiotics at this time Endocrine: SSI for glycemic control Heme: Follow CBC Prophylaxis: PPI/SCDs/subcutaneous heparin Condition critical Time spent on critical care excluding procedures 60 minutes Aguila Velazquez MD Nov 09, 2016 01:06
--- NOTE | 2016-11-09 02:26 | RADRPT ---
EXAM DATE/TIME: 11/09/2016 01:32 [facility] COMPARISON: No previous studies available for comparison. INDICATIONS : Altered mental status. RADIATION DOSE: 56.35 CTDIvol (mGy) MEDICAL HISTORY : Non-responsive. SURGICAL HISTORY : Non-responsive. ENCOUNTER: Initial ACUITY: 1 day PAIN SCALE: 0/10 LOCATION: cranial TECHNIQUE: Multiple contiguous axial images were obtained of the head. Using automated exposure control and adj ustment of the mA and/or kV according to patient size, radiation dose was kept as low as reasonably a chievable to obtain optimal diagnostic quality images. FINDINGS: CEREBRUM: The ventricles are normal for age. No evidence of midline shift, mass lesion, hemorrhage or acute in farction. No extra-axial fluid collections are seen. POSTERIOR FOSSA: The cerebellum and brainstem are intact. The 4th ventricle is midline. The cerebellopontine angle i s unremarkable. EXTRACRANIAL: The visualized portion of the orbits is intact. SKULL: The calvaria is intact. No evidence of skull fracture. CONCLUSION: Normal examination. Jimbo Xiong MD on November 09, 2016 at 2:24 Board Certified Radiologist. This report was verified electronically.
[2016-11-09 02:46] LABS: BLOOD GAS BASE EXCESS 5.5 mmol/L (-2-2); BLOOD GAS CARBOXYHEMOGLOBIN 3.4 % (0-4); BLOOD GAS HCO3 30 mmol/L (22-26); BLOOD GAS METHEMOGLOBIN 1.2 % (0-2); BLOOD GAS O2 HGB SATURATION 95 % (90-100); BLOOD GAS OXYGEN CONTENT 14.9 Vol % (12.0-20.0); BLOOD GAS PCO2 44 mmHg (38-42); BLOOD GAS PO2 149 mmHg (61-120); CRITICAL VALUE NO; OXYGEN DEVICE VENTILATOR; TEMP CORR TO 98.6
[2016-11-09 02:47] LABS: DRAW SITE RT RADIAL; FIO2 35 %; NUMBER OF ARTERIAL PUNCTURES 2; STAT NO; ULNAR PULSE PRESENT; VENT SETTINGS AC/12/500/PEEP5
[2016-11-09] MEDS: RESP: ALBUTEROL 2.5 MG/IPRATROPIUM 0.5 MG NEB (SCH) NEB ×4 (03:34→21:06)
--- NOTE | 2016-11-09 03:38 | RADRPT ---
EXAM DATE/TIME: 11/09/2016 01:55 [facility] COMPARISON: CHEST SINGLE AP, November 08, 2016, 20:12. INDICATIONS : Shortness of breath, possible pulmonary disease. MEDICAL HISTORY : Renal failure, acute. SURGICAL HISTORY : Vascular stent placement. ENCOUNTER: Subsequent ACUITY: 2 days PAIN SCORE: Non-responsive. LOCATION: Bilateral chest FINDINGS: A single view of the chest demonstrates the lungs to be symmetrically aerated without evidence of mas s, infiltrate or effusion. NG tube tip in stomach. The cardiomediastinal contours are unremarkable. Osseous structures are intact. Endotracheal tube unchanged. Vascular stent again seen. CONCLUSION: No acute disease. Jimbo Xiong MD on November 09, 2016 at 3:36 Board Certified Radiologist. This report was verified electronically.
[2016-11-09] MEDS: CHLORHEXIDINE GLUCONATE 2 % 1 PACK (2 CLOTHS) TOP SCH (04:00)
[2016-11-09] MEDS: PROPOFOL 1000 MG/100 ML INJ 100 ML IV SCH (05:45)
[2016-11-09] MEDS: INSULIN ASPART SUPPLEMENTAL SCALE SQ SCH ×4 (06:00→23:34)
[2016-11-09 06:36] LABS: AUTOMATED NEUTROPHIL # 6.8 TH/MM3 (1.8-7.7); BASOPHIL # 0.1 TH/MM3 (0-0.2); BASOPHIL % 0.7 % (0.0-2.0); EOSINOPHIL # 0.1 TH/MM3 (0-0.4); EOSINOPHIL % 1.3 % (0.0-4.0); HEMATOCRIT 33.4 % (39.0-51.0); LYMPH % 19.9 % (9.0-44.0); MEAN CELL VOLUME 93.4 FL (80.0-100.0); MEAN CORPUSCULAR HEMOGLOBIN 31.9 PG (27.0-34.0); MEAN CORPUSCULAR HGB CONC 34.1 % (32.0-36.0); NEUT % 66.1 % (16.0-70.0); PLATELET COUNT 90 TH/MM3 (150-450); RED BLOOD COUNT 3.58 MIL/MM3 (4.50-5.90); RED CELL DISTRIBUTION WIDTH 13.3 % (11.6-17.2); WHITE BLOOD COUNT 10.2 TH/MM3 (4.0-11.0)
[2016-11-09 06:47] LABS: HEMO FLAGS AUTO DIFF
[2016-11-09 07:18] LABS: ALKALINE PHOSPHATASE 95 U/L (45-117); ALT (GPT) 33 U/L (12-78); ANION GAP 8 MEQ/L (5-15); AST (GOT) 33 U/L (15-37); BICARBONATE 32.2 MEQ/L (21.0-32.0); BLOOD UREA NITROGEN 23 MG/DL (7-18); CHLORIDE 102 MEQ/L (98-107); GLOMERULAR FILTRATION RATE 26 ML/MIN (>89); POTASSIUM 3.8 MEQ/L (3.5-5.1); SODIUM (NA) 142 MEQ/L (136-145); TOTAL BILIRUBIN ADULT 0.6 MG/DL (0.2-1.0)
[2016-11-09] MEDS: LANSOPRAZOLE SOLUTAB 30 MG TAB TUBE SCH (07:57)
[2016-11-09] MEDS: SODIUM CHLORIDE 0.9% FLUSH 5 ML FLUSH IVF SCH ×2 (07:57→21:22)
[2016-11-09] MEDS: CHLORHEXIDINE 0.12% (ORAL KIT) 15 ML CUP MT SCH ×2 (07:58→20:00)
[2016-11-09] MEDS ORDERED: SODIUM CHLORIDE 0.9% FLUSH 5 ML FLUSH IVF SCH (09:00)
[2016-11-09 10:19] LABS: PLATELET ESTIMATE SMEAR LOW (NORMAL); PLATELET MORPHOLOGY NORMAL (NORMAL); SCAN/DIFF AUTO DIFF CONFIRMED; TARGET CELLS 1+ (NORMAL)
--- NOTE | 2016-11-09 11:42 | HHI.CCPN ---
Subjective Remarks/Hospital Course Patient passed SBT. will pursue extubation. once extubated, will perform nursing bedside swallow evaluation. If he passes, we will need some clear liquid diet and progress his diet slowly after that. If he fails, we will order formal speech and swallow evaluation keep patient nothing by mouth EZ Pap, incentive spirometer, a cappella If he remains stable, we will transition the patient out of the ICU with Hospitalist services following tomorrow. We will give the patient oxycodone and Dilaudid as needed for breakthrough pain. Vivek Zafar MD Nov 09, 2016 11:42
[2016-11-09] MEDS ORDERED: HYDROmorphone HCL PF 1 MG/ML VIAL IV PUSH PRN (11:45)
--- NOTE | 2016-11-09 12:46 | HHI.NPPN ---
Subjective History of Present Illness 66 year old male Hypertension crises CHF Intubation and then extubation Review of Systems General Constitutional: Fatigue Objective Data Data 11/08/16 11/09/16 18:59 06:59 Intake Total 140 ml Output Total 2500 ml Balance -2360 ml Intake IV Total 140 ml Output Urine Total 0 ml Hemodialysis 2500 ml Vital Signs Date Time Temp Pulse Resp B/P Pulse Ox O2 Delivery O2 Flow Rate FiO2 11/09/16 10:30 96 Nasal Cannula 4.00 11/09/16 10:23 100 Room Air 11/09/16 10:05 35 11/09/16 10:00 62 11/09/16 09:00 35 11/09/16 08:08 100 35 11/09/16 08:00 98.0 51 20 128/67 99 11/09/16 08:00 51 11/09/16 08:00 35 11/09/16 06:00 56 11/09/16 04:23 100 35 11/09/16 04:00 97.7 63 12 117/63 100 11/09/16 04:00 35 11/09/16 04:00 63 11/09/16 02:05 98 35 11/09/16 02:00 81 11/09/16 02:00 81 16 171/85 100 11/09/16 01:55 100 100 11/09/16 01:00 72 12 125/65 100 Ventilator 11/09/16 00:00 100 35 11/09/16 00:00 80 12 103/62 100 Ventilator 11/08/16 23:00 90 12 106/67 100 Ventilator 11/08/16 22:00 90 12 164/96 100 Ventilator 11/08/16 21:00 80 12 185/101 100 Ventilator 11/08/16 20:56 95 12 179/105 100 Ventilator 40 11/08/16 20:17 129 14 209/112 100 Ventilator 11/08/16 20:17 40 11/08/16 20:16 100 Ventilator 11/08/16 20:15 100 80 11/08/16 20:08 95.3 84 14 173/107 -: 11/09/16 0529 11/09/16 0529 Microbiology 11/08/16 Aerobic Blood Culture - Preliminary, Resulted NO GROWTH IN 1 DAY 11/08/16 Anaerobic Blood Culture - Preliminary, Resulted NO GROWTH IN 1 DAY 11/08/16 Aerobic Blood Culture - Preliminary, Resulted NO GROWTH IN 1 DAY 11/08/16 Anaerobic Blood Culture - Preliminary, Resulted NO GROWTH IN 1 DAY Physical Exam General Appearance: Well Developed Neck Neck Exam: Neck Supple Pulmonary Resp Exam: Clear Bilaterally Cardiology CV Exam: Regular Gastrointestinal/Abdomen GI Exam: Soft, Non-Tender Extremeties Extremities Exam: No Edema Assessment/Plan Problem List: (1) End stage renal disease on dialysis Plan: patient seen during dialysis UF 2 L today again follow Labs extubated BP better (2) Accelerated essential hypertension Plan: off Nitro drip (3) Hypertension Plan: accelerated (4) congestive heart Plan: extubated and on dialysis (5) Diabetes mellitus, type 2 Plan: follow BG Problem Qualifiers (1) Hypertension: Qualified Code: I10 - Essential hypertension Christopher Cali MD Nov 09, 2016 12:46
--- NOTE | 2016-11-09 14:27 | EKG ---
Date Performed: 11/08/2016 Time Performed: 20:15:14 PTAGE: 66 years EKG: SINUS TACHYCARDIA POSSIBLE LEFT ATRIAL ENLARGEMENT NONSPECIFIC ST & T-WAVE ABNORMALITY Comp ared to previous tracing, the sinus tachycardia is new. The septal T wave changes have improved with the patient now having minimal lateral ST segment depression. ABNORMAL RHYTHM ECG PREVIOUS TRACING : 09/21/2015 05.10 DOCTOR: Alison Harrison Interpretating Date/Time 11/09/2016 14:26:35
[2016-11-09] MEDS: ONDANSETRON HCL 4 MG/2 ML VIAL IV PRN (17:57)
[2016-11-09] MEDS: LABETALOL HCL 300 MG TAB PO SCH (21:22)
[2016-11-10] VITALS (14 sets, daily range): BP systolic 128–153; BP diastolic 59–74; PULSE 69–90; RESP 17–27; TEMP 97.5–98.9; O2SAT 91–100
[2016-11-10] MEDS: RESP: ALBUTEROL 2.5 MG/IPRATROPIUM 0.5 MG NEB (SCH) NEB ×4 (03:53→22:35)
[2016-11-10] MEDS: CHLORHEXIDINE GLUCONATE 2 % 1 PACK (2 CLOTHS) TOP SCH (04:00)
[2016-11-10] MEDS: INSULIN ASPART SUPPLEMENTAL SCALE SQ SCH (05:45)
[2016-11-10 06:46] LABS: BICARBONATE 31.3 MEQ/L (21.0-32.0); POTASSIUM 3.9 MEQ/L (3.5-5.1)
[2016-11-10 07:17] LABS: HEMATOCRIT 34.5 % (39.0-51.0); MEAN CELL VOLUME 95.7 FL (80.0-100.0); MEAN CORPUSCULAR HEMOGLOBIN 33.4 PG (27.0-34.0); MEAN CORPUSCULAR HGB CONC 34.9 % (32.0-36.0); PLATELET COUNT 99 TH/MM3 (150-450); RED CELL DISTRIBUTION WIDTH 13.4 % (11.6-17.2); WHITE BLOOD COUNT 9.4 TH/MM3 (4.0-11.0)
[2016-11-10] MEDS: CHLORHEXIDINE 0.12% (ORAL KIT) 15 ML CUP MT SCH ×2 (08:00→20:00)
[2016-11-10 08:11] LABS: REVIEW FLAG FINAL
[2016-11-10] MEDS: ONDANSETRON HCL 4 MG/2 ML VIAL IV PRN (08:35)
[2016-11-10] MEDS: LANSOPRAZOLE SOLUTAB 30 MG TAB TUBE SCH (08:36)
[2016-11-10] MEDS: HEPARIN SODIUM - SQ 10,000 UNITS/ML VIAL SQ SCH ×2 (08:36→21:48)
[2016-11-10] MEDS: LABETALOL HCL 300 MG TAB PO SCH ×2 (08:36→21:47)
[2016-11-10] MEDS: SODIUM CHLORIDE 0.9% FLUSH 5 ML FLUSH IVF SCH ×2 (08:37→21:53)
--- NOTE | 2016-11-10 12:56 | HHI.CCPN ---
Subjective Remarks/Hospital Course 11/09: Patient passed SBT. will pursue extubation. once extubated, will perform nursing bedside swallow evaluation. If he passes, we will need some clear liquid diet and progress his diet slowly after that. If he fails, we will order formal speech and swallow evaluation keep patient nothing by mouth EZ Pap, incentive spirometer, a cappella If he remains stable, we will transition the patient out of the ICU with Hospitalist services following tomorrow. We will give the patient oxycodone and Dilaudid as needed for breakthrough pain. 11/10: tolerating clears. no complaints. stable for transfer to floor. Objective Vital Signs Date Time Temp Pulse Resp B/P Pulse Ox O2 Delivery O2 Flow Rate FiO2 11/10/16 10:00 72 11/10/16 08:00 97.5 23 148/70 100 11/10/16 07:40 Nasal Cannula 2.00 11/09/16 10:05 35 Intake and Output 11/09/16 11/09/16 11/09/16 07:59 15:59 23:59 Intake Total 140 ml 480 ml Output Total 2500 ml 2000 ml 0 ml Balance -2360 ml -2000 ml 480 ml Result Diagram: 11/10/16 0424 11/10/16 0424 Imaging Last Impressions Chest X-Ray 11/08/162010 Signed Impressions: Service Date/Time: Tuesday, November 08, 2016 20:12 - CONCLUSION: Adequate placement of endotracheal tube. A few scattered nodular densities are seen in the upper lobes may be calcified granulomas. Jimbo Xiong MD Objective Remarks HEENT/ Neuro: awake, alert, oriented x 3. pupils equal round, reactive. mucous membranes moist. Neck: No JVD. trachea midline. Chest/Pulm: unlabored. clear to auscultation. CVS: S1-S2 regular, no murmur GI/abdomen: soft, nontender, no guarding. Extremities: warm bilaterally, no edema A/P Assessment and Plan Assessment : Pulmonary edema- resolved. Hypertensive crisis- resolved. Acute respiratory failure on mechanical ventilation- resolved End-stage renal disease on hemodialysis Diabetes mellitus Hypertension Coronary artery disease status post previous [place] Arthritis Plan: Neuro: oxycodone as needed for pain. Cardiovascular: continue labetalol po. goal sbp < 160. Pulmonary: wean o2 by NC for goal spo2 > 92%. I.S./EZ pap/Acapella to bedside. GI/liver: advance to renal diet. daily BMP Renal/: Hemodialysis per nephrology. Dr. Mohamud. ID: Blood culture NGTD. Doubt sepsis. No antibiotics at this time. Daily CBC. Endocrine: SSI for glycemic control Heme: Follow CBC Prophylaxis: PPI/SCDs/subcutaneous heparin Dispo: stable for transfer to floor. will consult hospitalist. Vivek Zafar MD Nov 10, 2016 12:56
--- NOTE | 2016-11-10 13:11 | HHI.NPPN ---
Subjective History of Present Illness 66 year old male Hypertension crises CHF Intubation and then extubation Review of Systems General Constitutional: Fatigue Objective Data Data 11/09/16 11/10/16 19:00 07:00 Intake Total 600 ml Output Total 2000 ml 0 ml Balance -2000 ml 600 ml Intake Oral 600 ml Output Urine Total 0 ml Hemodialysis 2000 ml Vital Signs Date Time Temp Pulse Resp B/P Pulse Ox O2 Delivery O2 Flow Rate FiO2 11/10/16 10:00 72 11/10/16 08:00 97.5 69 23 148/70 100 11/10/16 08:00 69 11/10/16 07:40 100 Nasal Cannula 2.00 11/10/16 07:00 100 Nasal Cannula 2.00 11/10/16 06:00 74 11/10/16 04:00 98.9 70 17 128/62 100 11/10/16 04:00 70 11/10/16 02:00 77 11/10/16 00:00 90 11/10/16 00:00 97.9 90 27 128/59 95 11/09/16 22:00 78 11/09/16 21:06 97 Nasal Cannula 2.00 11/09/16 20:00 98.2 81 14 176/81 100 11/09/16 20:00 81 11/09/16 19:00 98 Nasal Cannula 2.00 11/09/16 18:00 75 11/09/16 16:00 98.8 64 20 156/73 99 11/09/16 15:45 100 Nasal Cannula 2.00 11/09/16 14:00 79 -: 11/10/16 0424 11/10/16 0424 Physical Exam General Appearance: Well Developed Neck Neck Exam: Neck Supple Pulmonary Resp Exam: Clear Bilaterally Cardiology CV Exam: Regular Gastrointestinal/Abdomen GI Exam: Soft, Non-Tender Extremeties Extremities Exam: No Edema Assessment/Plan Problem List: (1) End stage renal disease on dialysis Plan: patient had dialysis yesterday doing better Diabetic diet ordered BP control discussed (2) Hypertension Plan: better on PO medications (3) congestive heart Plan: extubated and on dialysis (4) Diabetes mellitus, type 2 Plan: follow BG Problem Qualifiers (1) Hypertension: Qualified Code: I10 - Essential hypertension Christopher Cali MD Nov 10, 2016 13:11
[2016-11-11] VITALS: BP 147/68; PULSE 76; RESP 17; TEMP 99.2; O2SAT 93
[2016-11-11 04:00] VITALS: BP 160/76; PULSE 75; RESP 18; TEMP 98.4; O2SAT 96
[2016-11-11] MEDS: CHLORHEXIDINE GLUCONATE 2 % 1 PACK (2 CLOTHS) TOP SCH (04:00)
[2016-11-11] MEDS: RESP: ALBUTEROL 2.5 MG/IPRATROPIUM 0.5 MG NEB (SCH) NEB ×2 (04:36→10:58)
[2016-11-11] MEDS: INSULIN ASPART SUPPLEMENTAL SCALE SQ SCH ×3 (06:00→11:40)
[2016-11-11] MEDS: CHLORHEXIDINE 0.12% (ORAL KIT) 15 ML CUP MT SCH (08:00)
[2016-11-11 08:01] VITALS: PULSE 67
[2016-11-11 08:23] VITALS: BP 138/66; PULSE 77; RESP 18; TEMP 98.3; O2SAT 95
[2016-11-11] MEDS: SODIUM CHLORIDE 0.9% FLUSH 5 ML FLUSH IVF SCH (08:31)
[2016-11-11] MEDS: LANSOPRAZOLE SOLUTAB 30 MG TAB TUBE SCH (08:31)
[2016-11-11] MEDS: HEPARIN SODIUM - SQ 10,000 UNITS/ML VIAL SQ SCH (08:31)
[2016-11-11] MEDS: LABETALOL HCL 300 MG TAB PO SCH (08:31)
[2016-11-11 09:12] LABS: HEMATOCRIT 33.7 % (39.0-51.0); MEAN CELL VOLUME 90.6 FL (80.0-100.0); MEAN CORPUSCULAR HEMOGLOBIN 31.7 PG (27.0-34.0); PLATELET COUNT 99 TH/MM3 (150-450); RED BLOOD COUNT 3.72 MIL/MM3 (4.50-5.90); RED CELL DISTRIBUTION WIDTH 13.4 % (11.6-17.2); WHITE BLOOD COUNT 10.2 TH/MM3 (4.0-11.0)
[2016-11-11 09:14] LABS: REVIEW FLAG FINAL
[2016-11-11 09:45] LABS: BICARBONATE 29.3 MEQ/L (21.0-32.0); POTASSIUM 3.7 MEQ/L (3.5-5.1)
--- NOTE | 2016-11-11 10:13 | HHI.NPPN ---
Subjective General Problems: Edema, Heart Disease, Hypertension Renal Failure: End Stage Renal Disease History of Present Illness 66 year old black male with Hypertension, ESRD, CHF who is on dialysis T,T S, received hemodialysis the day before admission and presented with increasing shortness of breath and required intubation, he was also in hypertensive crises and was started on Nitroglycerine drip as well. Additional Remarks Patient is now alert and on room air, not in distress. Review of Systems General Constitutional: Fatigue Respiratory Lungs: SOB Cardiovascular Cardiac: Edema Objective Data Data 11/10/16 11/11/16 19:00 07:00 Intake Total 480 ml 240 ml Output Total 100 ml Balance 380 ml 240 ml Intake Oral 480 ml 240 ml Output Urine Total 100 ml # Voids 0 # Bowel Movements 0 Vital Signs Date Time Temp Pulse Resp B/P Pulse Ox O2 Delivery O2 Flow Rate FiO2 11/11/16 08:23 98.3 77 18 138/66 95 11/11/16 08:20 Room Air 11/11/16 04:00 98.4 75 18 160/76 96 11/11/16 00:00 99.2 76 17 147/68 93 11/10/16 22:40 92 11/10/16 20:10 Room Air 11/10/16 20:03 82 11/10/16 20:00 98.6 85 18 153/74 91 11/10/16 18:00 77 11/10/16 16:00 77 11/10/16 16:00 98.7 77 21 134/63 98 11/10/16 14:00 88 11/10/16 12:00 77 11/10/16 12:00 97.9 78 19 143/67 98 -: 11/11/16 0813 11/11/16 0813 Physical Exam General Appearance: No Acute Distress, Comfortable Neck Neck Exam: Neck Supple Pulmonary Resp Exam: Clear Bilaterally, Breath Sounds Equal, No Distress, Rhonchi, Decreased Bases Cardiology CV Exam: Regular Gastrointestinal/Abdomen GI Exam: Soft, Non-Tender Extremeties Extremities Exam: No Edema Neurologic Neuro Exam: Alert, Awake, Oriented Psychiatric Psych Exam: Appropriate Responses Assessment/Plan Problem List: (1) End stage renal disease on dialysis Plan: Patient has HD done on Friday and again on Sat. 2.5 and 2.0 liters removed respectively. Now the breathing is better , on room air. HD is due in AM. Told to restrict fluid intake, he admits that he was drinking more fluid before , the day before admission. (2) Hypertension Plan: better on PO medications (3) congestive heart Plan: extubated and on dialysis (4) Diabetes mellitus, type 2 Plan: follow BG Plan Patient has BP controlled and now on room air. From Nephrology, can be discharged and has HD as out patient tomorrow. Problem Qualifiers (1) Hypertension: Qualified Code: I10 - Essential hypertension Moe Mohamud MD Nov 11, 2016 10:13
[2016-11-11 11:01] VITALS: O2SAT 98
[2016-11-11 12:02] VITALS: BP 125/65; PULSE 68; RESP 18; TEMP 98; O2SAT 97
[2016-11-11] MEDS ORDERED: LABE300T PO (13:35)
[2016-11-11] MEDS ORDERED: AMLO10 PO (13:35)
--- NOTE | 2016-11-11 13:40 | HHI.DS ---
Discharge Summary Admission Date Nov 08, 2016 at 23:55 Discharge Date: Nov 11, 2016 Admitting Diagnosis RESPIRATORY FAILURE. CHF. (1) End stage renal disease on dialysis ICD Code: N18.6 Diagnosis: Secondary (2) Hypertension ICD Code: I10 Diagnosis: Secondary (3) Accelerated essential hypertension ICD Code: I10 Diagnosis: Principal (4) Acute respiratory failure ICD Code: J96.00 Diagnosis: Principal Procedures Intubation 11/08/16 Brief History - From Admission HPI 66-year-old male was brought in by EMS for respiratory distress and altered mental status. Patient started having shortness of breath this morning. EMS was called this evening. Patient was found tachypneic and lethargic. Patient started having increasing lethargy on the way to the ED. Upon arrival to ED patient unable to provide any information, in respiratory distress. Patient has history of end-stage renal disease on dialysis Friday and and Friday. Per EMS, patient has not missed his dialysis schedule. Patient has history of diabetes, hypertension and CHF. He he has been admitted to the following intubation for pulmonary edema on multiple occasions. Patient was noted to have a systolic blood pressure in the 200s on arrival and was in pulmonary edema. He was emergently intubated and placed on mechanical ventilation by ER physician. Subsequently he was evaluated by nephrology and is undergoing emergent hemodialysis with plan for removal of 2 L of fluid. Patient was accepted for admission by critical care medicine service. When I evaluated the patient he was sedated, orally intubated on mechanical ventilation. History was obtained by reviewing records and discussion with Dr. Piedra. [facility] Past Medical History Arthritis: Yes Asthma: No Autoimmune Disease: No Blood Disorders: No Heart Rhythm Problems: No Cancer: No Cardiovascular Problems: Yes (MD 10/2013, CHF) High Cholesterol: Yes Chest Pain: No Congestive Heart Failure: Yes COPD: Yes Cerebrovascular Accident: No Diabetes: Yes (INSULIN DEPENDENT) Patient Takes Glucophage: No Endocrine: Yes Gastrointestinal Disorders: No GERD: No Glaucoma: No Gout: Yes Genitourinary: Yes Headaches: Yes Hepatitis: No Hiatal Hernia: No Hypertension: Yes Immune Disorder: No Implanted Vascular Access Dvce: No Kidney Stones: Yes Medical other: No Musculoskeletal: Yes (ARTHRITIS, NECK PROBLEMS) Neurologic: Yes (NEUROPATHY HANDS AND FEET) Psychiatric: No Reproductive: No Respiratory: Yes (COPD) Integumentary: No Migraines: Yes Myocardial Infarction: Yes (2012) Renal Failure: Yes (STAGE 4-PT OF DR. FRANKLIN) Seizures: No Sleep Apnea: No Thyroid Disease: No Ulcer: No Past Surgical History AICD: No Arteriovenous Shunt: Yes (RIGHT ARM) Body Medical Devices: DIALYSIS CATHETER IN CHEST Joint Replacement: No Pacemaker: No Thoracic Surgery: Yes (DIALYSIS CATHETER INSERTED 01/2014) Tonsillectomy: Yes Other Surgery: Yes (PERMACATH/FISTULA) Social History Alcohol Use: No (UNABLE TO OBTAIN) Tobacco Use: Yes (PACK A DAY ) Substance Use: No (UNABLE TO OBTAIN) Allergies-Medications (Allergen,Severity, Reaction): Coded Allergies: No Known Allergies (Verified , 11/08/16) Reported Meds & Prescriptions Reported Meds & Active Scripts Active Active Prescriptions or Reported Medications Unobtainable Review of Systems Unobtainable as patient is sedated, orally intubated on mechanical ventilation. CBC/BMP: 11/11/16 0813 11/11/16 0813 Significant Findings Laboratory Tests Test 11/08/16 11/08/16 11/09/16 11/09/16 20:30 20:50 02:31 05:29 White Blood Count 11.8 TH/MM3 (4.0-11.0) Red Blood Count 3.91 MIL/MM3 3.58 MIL/MM3 (4.50-5.90) (4.50-5.90) Hemoglobin 12.7 GM/DL 11.4 GM/DL (13.0-17.0) (13.0-17.0) Hematocrit 38.1 % 33.4 % (39.0-51.0) (39.0-51.0) Platelet Count 111 TH/MM3 90 TH/MM3 (150-450) (150-450) Monocytes (%) (Auto) 8.1 % (0.0-8.0) 12.0 % (0.0-8.0) Monocytes # (Auto) 1.0 TH/MM3 1.2 TH/MM3 (0-0.9) (0-0.9) Prothrombin Time 12.5 SEC (9.8-11.6) Blood Urea Nitrogen 43 MG/DL (7-18) 23 MG/DL (7-18) Creatinine 4.72 MG/DL 2.91 MG/DL (0.60-1.30) (0.60-1.30) Estimat Glomerular Filtration 15 ML/MIN (>89) 26 ML/MIN (>89) Rate Random Glucose 201 MG/DL (74-106) Phosphorus Level 5.6 MG/DL (2.5-4.9) Troponin I 0.13 NG/ML (0.02-0.05) Thyroid Stimulating Hormone 5.600 uIU/ML 3rd Gen (0.358-3.740) Blood Gas HCO3 27 mmol/L 30 mmol/L (22-26) (22-26) Arterial Blood pH 7.22 7.44 (7.380-7.420) (7.380-7.420) Arterial Blood Partial 68 mmHg (38-42) 44 mmHg (38-42) Pressure CO2 Arterial Blood Partial 392 mmHG 149 mmHg Pressure O2 (61-120) (61-120) Arterial Blood 5.7 % (0-4) Carboxyhemoglobin Blood Gas Hemoglobin 11.8 G/DL 11.0 G/DL (12.0-16.0) (12.0-16.0) Blood Gas Base Excess 5.5 mmol/L (-2-2) Platelet Estimate LOW (NORMAL) Target Cells 1+ (NORMAL) Carbon Dioxide Level 32.2 MEQ/L (21.0-32.0) Albumin 3.1 GM/DL (3.4-5.0) Test 11/10/16 11/11/16 04:24 08:13 Red Blood Count 3.60 MIL/MM3 3.72 MIL/MM3 (4.50-5.90) (4.50-5.90) Hemoglobin 12.0 GM/DL 11.8 GM/DL (13.0-17.0) (13.0-17.0) Hematocrit 34.5 % 33.7 % (39.0-51.0) (39.0-51.0) Platelet Count 99 TH/MM3 99 TH/MM3 (150-450) (150-450) Chloride Level 97 MEQ/L 96 MEQ/L (98-107) (98-107) Blood Urea Nitrogen 28 MG/DL (7-18) 52 MG/DL (7-18) Creatinine 3.67 MG/DL 5.62 MG/DL (0.60-1.30) (0.60-1.30) Estimat Glomerular Filtration 20 ML/MIN (>89) 12 ML/MIN (>89) Rate Random Glucose 138 MG/DL 153 MG/DL (74-106) (74-106) Calcium Level 8.3 MG/DL (8.5-10.1) Imaging Last Impressions Chest X-Ray 11/09/16 0600 Signed Impressions: Service Date/Time: Wednesday, November 09, 2016 01:55 - CONCLUSION: No acute disease. Jimbo Xiong MD Head CT 11/08/162042 Signed Impressions: Service Date/Time: Wednesday, November 09, 2016 01:32 - CONCLUSION: Normal examination. Jimbo Xiong MD PE at Discharge GENERAL: Well-developed well-nourished thin patient. In no acute distress. Ambulating in the room. SKIN: Warm and dry. No lesions noted. HEENT: Normocephalic. Pupils equal and round. Mucous membranes pink and moist. CARDIOVASCULAR: Regular rate and rhythm. No murmur appreciated. RESPIRATORY: No accessory muscle use. Clear to auscultation. Breath sounds equal bilaterally. GASTROINTESTINAL: Abdomen soft, non-tender, nondistended. Bowel sounds x4. MUSCULOSKELETAL: No obvious deformities. No clubbing or cyanosis. No edema. NEUROLOGICAL: Awake and alert. No focal neurological deficits. Moves upper and lower extremities spontaneously. Normal speech. PSYCHIATRIC: Appropriate mood and affect; insight and judgment normal. Pt update on day of discharge The patient has no acute complaints today and states that he feels well. He would like to go home. He states that over the holidays he had been drinking more fluids than he was supposed to. Denies any alcohol use. He states he's been compliant with dialysis. He does state that he was out of his blood pressure medication for about a week prior to admission and is requesting refills. Hospital Course 66-year-old male with a past medical history of hypertension and ESRD who presented in respiratory distress with altered mental status. The patient was noted to be in hypertensive emergency at admission, likely secondary to being out of blood pressure medications for 1 week. The patient was restarted on amlodipine and labetalol and BP is now well controlled. Respiratory failure thought to be secondary to flash pulmonary edema secondary to uncontrolled hypertension. The patient underwent an uncomplicated ICU stay and was extubated and is currently comfortable and satting well on room air. He received dialysis on 11/09 and 11/10 with 2.5 and 2 L removed respectively, cleared by nephrology to resume outpatient dialysis. Evaluated by PT, ambulating well, no restrictions. Prescriptions written for antihypertensives, educated on importance of medication compliance. The patient has outpatient dialysis tomorrow. Discharged home in stable condition. Resume home medications. Pt Condition on Discharge: Stable Discharge Disposition: Discharge Home Discharge Time: > 30 minutes Discharge Instructions DIET: Follow Instructions for: Renal Failure Diet Activities you can perform: Regular-No Restrictions Follow up Referrals: Nephrology - 2 Weeks with Christopher Cali MD PCP Follow-up - 2-3 Days with Flores New Medications: Amlodipine (Norvasc) 10 Mg Tab 10 MG PO DAILY Blood Pressure Management #30 TAB Labetalol (Labetalol) 300 Mg Tab 300 MG PO Q12HR Blood Pressure Management #60 TAB Additional Information Written by Elliot Miller, acting as scribe for Dr. Lopez on 11/11/16 at 13:38. The documentation accurately reflects the work performed [id number] by me, Dr. Lopez on 11/11/16 at 13:38. Elliot Miller Nov 11, 2016 13:40 Greg Lopez MD Nov 13, 2016 03:12
--- NOTE | 2016-11-11 14:43 | PQ ---
Physician Query Response Document PATIENT: CHASITY FU : 1950 ADMIT DATE: 11/08/2016 11:55 PM DISCH DATE: RESPONDING PROVIDER #: agreene QUERY TEXT: CHF Acuity and Type Heart Failure is documented in the Medical Record. Please also document the type and acuity (includes probable or suspected) such as: Type: -- Combined -- Diastolic -- Systolic -- Other (please specify) Acuity: -- Acute -- Acute on chronic -- Chronic -- Other (please specify) Also please document the underlying cause of the heart failure (includes probable or suspected) The patient's Clinical Indicators include: 12/13/2013 LAST ECHO MILD LVH EJ FX 50% ABNORMAL LEFT VENTRICULAR RELAXATION ( GRADE 1 DIASTOLIC DYSFUN CTION) mild to mod AORTIC / moderate to severe MITRAL VALVE regurgitation, Left atrium moderately dil ated , Mild PULMONIC VALVE regurgitation, Left atrium moderately dilated, PA pressure 31 mm Hg. DIAGNOSIS RESPIRATORY FAILURE / CHF EXACERBATION Query created by: Danni Ortiz on 11/11/2016 12:14 PM RESPONSE TEXT: Probable Acute on Chronic Diastolic heart failure, likely complicated by severe mitral regurgitation. Electronically signed by: Vivek Zafar MD 11/11/2016 2:39 PM
== END 2016-11-11 14:42 | disposition home or self-care (01) | DRG 189 ==
LOC: NEPC 20:06 → NEDA 23:55 → HIME 11-09 01:45 → N04A 11-10 19:01
PROVIDERS: ADMIT Internal Medicine; ATTEND Internal Medicine
DX: J96.00 Acute respiratory failure, unspecified whether with hypoxia or hypercapnia (principal); I50.43 Acute on chronic combined systolic (congestive) and diastolic (congestive) heart failure; E87.2 Acidosis; N18.6 End stage renal disease; I12.0 Hypertensive chronic kidney disease with stage 5 chronic kidney disease or end stage renal disease; I16.1 Hypertensive emergency; E11.22 Type 2 diabetes mellitus with diabetic chronic kidney disease; E78.00 Pure hypercholesterolemia, unspecified; I25.10 Atherosclerotic heart disease of native coronary artery without angina pectoris; I25.2 Old myocardial infarction; I34.0 Nonrheumatic mitral (valve) insufficiency; J44.9 Chronic obstructive pulmonary disease, unspecified; M10.9 Gout, unspecified; M19.90 Unspecified osteoarthritis, unspecified site; Z72.0 Tobacco use; Z79.4 Long term (current) use of insulin; Z87.442 Personal history of urinary calculi; Z99.2 Dependence on renal dialysis
CPT/HCPCS: 31500; 36591; 36600; 43753; 70450; 71010; 80048; 80053; 82550; 82805; 82948; 83735; 84100; 84443; 84484; 85025; 85027; 85610; 85730; 87040; 87641; 90935; 93005; 94002; 94003; 94150; 94640; 94667; 96365; 96366; J1644; J1815; J2250; J2405; J3010; J7030

== ENCOUNTER 2018-09-21 09:15 | Inpatient (IN) ==
--- NOTE | 2018-09-21 10:00 | XR ---
EXAM DATE: 09/21/2018 9:57 AM EST AGE/SEX: 68 years / Male INDICATIONS: Shortness of breath. CLINICAL DATA: This is the patient's initial encounter. Patient reports that signs and symptoms have been present for 1 day and indicates a pain score of 0/10. MEDICAL/SURGICAL HISTORY: . Renal failure, acute. . Vascular stent placement. COMPARISON: [facility] [place]ST SINGLE AP, 11/09/2016. . FINDINGS: The examination demonstrates vascular stents in place along the right side of the mediastinum. The he art is normal in size. The lungs demonstrate chronic appearing interstitial changes but are otherwise clear. There are COPD. Osseous structures are intact. CONCLUSION: COPD changes. No acute abnormality. Electronically signed by: Rigoberto Gray MD 09/21/2018 9:59 AM EST
[2018-09-21 10:04] LABS: Baso % (Auto) 0.2 % (0.0-2.0); Hematocrit 46.6 % (39.0-51.0); Hemoglobin 16.2 gm/dL (13.0-17.0); Lymph # (Auto) 1.2 th/mm3 (1.0-4.8); Lymph % (Auto) 14.3 % (9.0-44.0); Mean Corpuscular HGB Conc 34.9 % (32.0-36.0); Mean Corpuscular Volume 94.7 fL (80.0-100.0); Mono % (Auto) 11.7 % (0.0-8.0); Neut # (Auto) 6.1 th/mm3 (1.8-7.7); Neut % (Auto) 73.8 % (16.0-70.0); Platelet Count 108 th/mm3 (150-450); Red Blood Count 4.92 mil/mm3 (4.50-5.90); Red Cell Distribution Width 13.5 % (11.6-17.2); White Blood Count 8.3 th/mm3 (4.0-11.0)
[2018-09-21 10:29] LABS: Alanine Aminotransferase 29 U/L (12-78); Alkaline Phosphatase 90 U/L (45-117); Total Protein 9.8 g/dL (6.4-8.2); Troponin I 0.14 ng/mL (0.02-0.05)
[2018-09-21 10:37] LABS: Albumin 3.6 g/dL (3.4-5.0); Anion Gap 9 meq/L (5-15); Aspartate Aminotransferase 38 U/L (15-37); Blood Urea Nitrogen 43 mg/dL (7-18); Calcium 9.3 mg/dL (8.5-10.1); Carbon Dioxide 27.6 meq/L (21.0-32.0); Chloride 97 meq/L (98-107); Glomerular Filtration Rate 9 mL/min (>89); Glucose,Random 194 mg/dL (74-106); Magnesium 2.6 mg/dL (1.5-2.5); Sodium 134 meq/L (136-145)
[2018-09-21 10:40] LABS: Potassium 6.1 meq/L (3.5-5.1)
[2018-09-21] MEDS ORDERED: Dextrose 50% in Water 50 ML Vial IV.PUSH ONE (10:45)
[2018-09-21] MEDS ORDERED: Calcium Chloride Inj 1 GM in Sodium Chlor 0.9% Inj 100 ML IV.SIG ONE (10:45)
[2018-09-21] MEDS ORDERED: Sodium Polystyrene Sulfonate/Sorbitol Liq 15 GM/60 ML UDC PO ONE (10:45)
--- NOTE | 2018-09-21 12:00 | P.HPIM ---
History of Present Illness Primary Care Physician: Agapito Cole Chief Complaint: shortness of breath History of Present Illness: patient is a 68 y/o male with history of ESRD- on HD,COPD, hypertension who presented to ER with shortness of breath. he says that his sob started a week ago and it gradually got worse. it was associated with occasional dry cough. he denies any fever or chills but had some ' chest tightness'. he was prescribed Z- Pack which he took till last Friday with no significant relief. his last HD was on Friday. he says that he went to his PCP office today and he was advised to come to the hospital. he was placed on oxygen via N/C and was on three liters of oxygen at the time of my evaluation. Inpatient Certification: I certify that the inpatient services were ordered in accordance with Medicare regulations governing the order. This includes certification that hospital inpatient services are reasonable and necessary and in the case of services not specified as inpatient-only under 42 CFR 419.22(n), that they are appropriately provided as inpatient services in accordance to with the 2-midnight benchmark under 43 CFR 412.3(e) Estimated Total Length of Stay (Days): 2 Plans for Post Hospital Care: Home Review of Systems All other systems reviewed negative except as stated in HPI PMFSH - History History Provided By: Patient, Housefellow / EMT - Medical History Medical History: Medical History (Last Reviewed 09/21/18 @ 11:56 by Calos Najera MD) A-V fistula (Acute) COPD (chronic obstructive pulmonary disease) Diabetes mellitus ESRD (end stage renal disease) on dialysis HTN (hypertension) Myocardial infarct, old - Family History Family History: Family History (Last Updated 09/21/18 @ 11:56 by Calos Najera MD) Other Family history of diabetes mellitus - Tobacco History Tobacco Use In Past 30 Days: Yes (1/2 PPD) Smoking Status: Current every day smoker Tobacco Type: Cigarettes - Alcohol History How Often Do You Have a Drink Containing Alcohol: Never - Substance Use History Substance History: No History of Abuse - Travel History Recent Travel in the [place] Within the Last 8 Weeks: No Recent Travel Out of the Country Within the Last 8 Weeks: No - Immunization History Tetanus Immunization: <5 Years Medications and Allergies Active Medications: Active Medications Albuterol (Duoneb Neb (Sal)) 1 ampul NEB Q4HR NEB SAL Albuterol (Albuterol Neb (Prn)) 1.25 mg NEB Q2HR NEB PRN PRN Reason: sob Methylprednisolone Sodium Succinate (Solumedrol Inj) 40 mg IV.PUSH Q8HR SAL Allergies Allergy/AdvReac Type Severity Reaction Status Date / Time No Known Allergies Allergy Verified 09/21/18 09:30 Home Medications Medication Instructions Recorded Confirmed Type Renvela 09/21/18 History Exam Vital signs: Vital Signs 09/21/18 09:24 09/21/18 09:30 09/21/18 09:35 Temperature 98.6 F Pulse Rate 96 H 89 111 H Respiratory Rate 16 16 Blood Pressure 199/108 H 178/89 H Pulse Oximetry 100 98 09/21/18 09:57 09/21/18 10:02 09/21/18 10:33 Temperature Pulse Rate 103 H 108 H Respiratory Rate 20 28 H Blood Pressure Pulse Oximetry 100 100 Intake & Output 09/20/18 09/21/18 09/21/18 18:59 06:59 18:59 Weight 49.895 kg - Constitutional mild distress - Routine HEENT Exam Eye: Present: PERRL - Routine Neck Exam Present: supple - Routine Respiratory Exam Present: CTA bilaterally (bilateral wheezing/ rhonchi) - Routine Cardiovascular Exam Present: tachycardia - Routine Abdominal Exam Present: soft - Routine Extremities Exam Comments: no pedal edema. - Routine Neurological Exam Present: alert, oriented X3 Results - Labs CBC & Chem 7: 09/21/18 09:41 09/21/18 09:41 Labs: Short CBC 09/21/18 Range/Units 09:41 WBC 8.3 (4.0-11.0) th/mm3 Hgb 16.2 (13.0-17.0) gm/dL Hct 46.6 (39.0-51.0) % Plt Count 108 L (150-450) th/mm3 BMP 09/21/18 09:41 Sodium 134 L Potassium 6.1 H Chloride 97 L Carbon Dioxide 27.6 BUN 43 H Creatinine 7.65 H Calcium 9.3 Cardiac Enzymes 09/21/18 Range/Units 09:41 Troponin I 0.14 H (0.02-0.05) ng/mL Liver Function 09/21/18 Range/Units 09:41 Total Bilirubin 1.1 H (0.2-1.0) mg/dL AST 38 H (15-37) U/L ALT 29 (12-78) U/L Alkaline Phosphatase 90 (45-117) U/L Albumin 3.6 (3.4-5.0) g/dL - Imaging Impressions Chest X-Ray 09/21/18 09:38 CONCLUSION: COPD changes. No acute abnormality. Caprini VTE Risk Assessment Caprini VTE Risk Assessment: Moderate/High Risk (score >= 2) Caprini Risk Assessment Model: Point Value = 1 Point Value = 2 Point Value = 3 Point Value = 5 Age 41-60 Minor surgery BMI > 25 kg/m2 Swollen legs Varicose veins or History of unexplained or recurrent spontaneous Oral contraceptives or hormone replacement Sepsis (< 1 month) Serious lung disease, including pneumonia (< 1 month) Abnormal pulmonary function Acute myocardial infarction Congestive heart failure (< 1 month) History of inflammatory bowel disease Medical patient at bed rest Age 61-74 Arthroscopic surgery Major open surgery (> 45 min) Laparoscopic surgery (> 45 min) Malignancy Confined to bed (> 72 hours) Immobilizing plaster cast Central venous access Age >= 75 History of VTE Family history of VTE Factor V Leiden Prothrombin [id number] Lupus anticoagulant Anticardiolipin antibodies Elevated serum homocysteine Heparin-induced thrombocytopenia Other congenital or acquired thrombophilia Stroke (< 1 month) Elective arthroplasty Hip, pelvis, or leg fracture Acute spinal cord injury (< 1 month) Prophylaxis Regimen: Total Risk Factor Score Risk Level Prophylaxis Regimen 0-1 Low Early ambulation 2 Moderate Order ONE of the following: *Sequential Compression Device (SCD) *Heparin 5000 units SQ BID 3-4 Higher Order ONE of the following medications: *Heparin 5000 units SQ TID *Enoxaparin/Lovenox 40 mg SQ daily (WT < 150 kg, CrCl > 30 mL/min) *Enoxaparin/Lovenox 30 mg SQ daily (WT < 150 kg, CrCl > 10-29 mL/min) *Enoxaparin/Lovenox 30 mg SQ BID (WT < 150 kg, CrCl > 30 mL/min) AND/OR *Sequential Compression Device (SCD) 5 or more Highest Order ONE of the following medications: *Heparin 5000 units SQ TID (Preferred with Epidurals) *Enoxaparin/Lovenox 40 mg SQ daily (WT < 150 kg, CrCl > 30 mL/min) *Enoxaparin/Lovenox 30 mg SQ daily (WT < 150 kg, CrCl > 10-29 mL/min) *Enoxaparin/Lovenox 30 mg SQ BID (WT < 150 kg, CrCl > 30 mL/min) AND *Sequential Compression Device (SCD) Assessment and Plan - Plan A/P - COPD Exacerbation keep on oxygen to keep O2 sat > 90%- start on IV steroids and antibiotic and continue with neb treatment; scheduled and prn. check ABG and consult pulmonary. -ESRD on HD/ with hyperkalemia received Kayexalate, insulin and Bicarbonate in ER- will repeat the potassium level and consult Nephrology -elevated troponin- possibly due to renal failure no acute St-T changes on EKG- will continue to trend the cardiac enzymes. start on aspirin -hypertension; will verify and resume the home meds -diabetes mellitus; start on accu-check with SSI -DVT prophylaxis with subq Heparin Discussed Condition With: ER physician and the patient.
--- NOTE | 2018-09-21 12:03 | ED ---
HPI General Chief Complaint: Shortness of Breath/Dyspnea Stated Complaint: SOB Time Seen by Provider: 09/21/18 09:17 Source: patient Mode of arrival: ambulatory Limitations: no limitations History of Present Illness 68-year-old male arrives to the ER due to shortness of breath. He was at his primary care provider this morning due to shortness of breath and was advised to come here. He has end-stage renal disease Friday. He underwent dialysis on Friday, 3 days prior. He reports completing a course of azithromycin without improvement. He reports nasal congestion and rhinorrhea. A nonproductive cough is reported. At home nebulizers have not been helpful. COPD is reported. Patient smokes 10 cigarettes/day. Patient denies chest pain. Related Data Home Medications Medication Instructions Recorded Confirmed Renvela 09/21/18 Allergies Allergy/AdvReac Type Severity Reaction Status Date / Time No Known Allergies Allergy Verified 09/21/18 09:30 Review of Systems ROS: all other systems reviewed are negative PMFSH Family History Family History Other Family history of diabetes mellitus Social History Social History Substance History: No History of Abuse Smoking Status: Current every day smoker Tobacco Type: Cigarettes How Often Do You Have a Drink Containing Alcohol: Never Recent Travel in [facility] within the Last 8 Weeks: No Recent Out of Country Travel within the Last 8 Weeks: No Immunization History Tetanus Immunization: <5 Years Exam Narrative Exam Narrative: GENERAL: 68-year-old male well-nourished well-developed somewhat short of breath SKIN: Focused skin assessment warm/dry. HEAD: Atraumatic. Normocephalic. EYES: Pupils equal and round. No scleral icterus. No injection or drainage. ENT: No nasal bleeding or discharge. Mucous membranes pink and moist. NECK: Trachea midline. No JVD. CARDIOVASCULAR: Regular rhythm. The rate is about 110. RESPIRATORY: Conversational dyspnea present. Lungs are clear to my exam. GASTROINTESTINAL: Abdomen soft, non-tender, nondistended. Hepatic and splenic margins not palpable. MUSCULOSKELETAL: No obvious deformities. No clubbing. No cyanosis. No edema. NEUROLOGICAL: Awake and alert. No obvious cranial nerve deficits. Motor grossly within normal limits. Normal speech. PSYCHIATRIC: Appropriate mood and affect; insight and judgment normal. Course Initial Documented Vital Signs Temperature 98.6 F 09/21/18 09:24 Pulse Rate 96 H 09/21/18 09:24 Respiratory Rate 16 09/21/18 09:24 Blood Pressure 199/108 H 09/21/18 09:24 Pulse Oximetry 100 09/21/18 09:24 Last Documented Vital Signs Temperature 98.6 F 09/21/18 09:24 Pulse Rate 108 H 09/21/18 10:33 Respiratory Rate 28 H 09/21/18 10:33 Blood Pressure 178/89 H 09/21/18 09:35 Pulse Oximetry 100 09/21/18 10:33 Critical Care Time Critical Care Time: Yes Total Critical Care Time: 35 Attestation: Aggregate critical care time was 35 minutes. Time to perform other separately billable procedures was not included in the critical care time. My time did not include minutes spent treating any other patients simultaneously or on activities that did not directly contribute to the patient's treatment. The services I provided to this patient were to treat and/or prevent clinically significant deterioration that could result in: Cardiopulmonary arrest, hyperkalemic arrhythmia I provided critical care services requiring my management, as noted below: Chart data review, documentation time, medication orders and management, vital sign assessments/reviewing monitor data, ordering and reviewing lab tests, ordering and interpreting/reviewing x-rays and diagnostic studies, care of the patient and discussion of the patient with the admitting physicians. Medical Decision Making MDM Narrative Medical decision making narrative: Potassium is 6.1. There is peak T waves on EKG. Insulin dextrose, calcium and sodium bicarbonate as well as Kayexalate given in the ER. Case discussed with Dr. Mohamud of nephrology. Stat dialysis will be arranged. Case discussed with Dr Najera for [facility]. Pt has remained slightly tachycardic here at 110. Blood pressure steady at 170/100 approximately. Medical Screen Exam Complete: Yes Emergency Medical Condition: Yes Lab Data Result diagrams: 09/21/18 09:41 09/21/18 09:41 Lab Results 09/21/18 09/21/18 Range/Units 09:41 09:41 WBC 8.3 (4.0-11.0) th/mm3 RBC 4.92 (4.50-5.90) mil/mm3 Hgb 16.2 (13.0-17.0) gm/dL Hct 46.6 (39.0-51.0) % MCV 94.7 (80.0-100.0) fL MCH 33.0 (27.0-34.0) pg MCHC 34.9 (32.0-36.0) % RDW 13.5 (11.6-17.2) % Plt Count 108 L (150-450) th/mm3 MPV 9.0 (7.0-11.0) fL Neut % (Auto) 73.8 H (16.0-70.0) % Lymph % (Auto) 14.3 (9.0-44.0) % Irwin % (Auto) 11.7 H (0.0-8.0) % Eos % (Auto) 0.0 (0.0-4.0) % Baso % (Auto) 0.2 (0.0-2.0) % Neut # (Auto) 6.1 (1.8-7.7) th/mm3 Lymph # (Auto) 1.2 (1.0-4.8) th/mm3 Irwin # (Auto) 1.0 H (0.0-0.9) th/mm3 Eos # (Auto) 0.0 (0.0-0.4) th/mm3 Baso # (Auto) 0.0 (0.0-0.2) th/mm3 WBC Differential . Differential Comment Auto diff final Sodium 134 L (136-145) meq/L Potassium 6.1 H (3.5-5.1) meq/L Chloride 97 L (98-107) meq/L Carbon Dioxide 27.6 (21.0-32.0) meq/L Anion Gap 9 (5-15) meq/L BUN 43 H (7-18) mg/dL Creatinine 7.65 H (0.60-1.30) mg/dL Estimated GFR 9 L (>89) mL/min Random Glucose 194 H (74-106) mg/dL Calcium 9.3 (8.5-10.1) mg/dL Magnesium 2.6 H (1.5-2.5) mg/dL Total Bilirubin 1.1 H (0.2-1.0) mg/dL AST 38 H (15-37) U/L ALT 29 (12-78) U/L Alkaline Phosphatase 90 (45-117) U/L Troponin I 0.14 H (0.02-0.05) ng/mL Total Protein 9.8 H (6.4-8.2) g/dL Albumin 3.6 (3.4-5.0) g/dL Imaging Data Radiologist's impression: Chest X-Ray 09/21/18 09:38 CONCLUSION: COPD changes. No acute abnormality. Discharge Plan Discharge Disposition Patient Disposition: 30 Still Patient Physicians Team ED Provider: Rigoberto Vazquez Attending Provider: Calos Najera Other Providers: Rosita Mohamud Discharge Interventions Interventions: Vital Signs Last Done: 09/21/18 10:33 Status ED Status: Admitted Patient
[2018-09-21] MEDS ORDERED: Dextrose 50% in Water 50 ML Vial IV.PUSH PRN (12:05)
[2018-09-21] MEDS: MethylPREDNISolone Sod Succinate Inj 40 MG/ML Vial IV.PUSH SCH ×3 (12:06→21:09)
[2018-09-21] MEDS ORDERED: Levofloxacin 500 mg Premix Inj 500 MG/100 ML PIGGYBACK IV.SIG ONE (13:00)
[2018-09-21 13:14] LABS: ABG Base Excess 0.9 mmol/L (-2-2); ABG PCO2 41 mmHg (38-42); ABG PO2 77 mmHg (61-120)
[2018-09-21] MEDS ORDERED: Albumin Human 25% Inj 100 ML IV.SIG PRN (14:00)
[2018-09-21] MEDS ORDERED: Sod Chloride 0.9% Inj 1,000 ML OTHER PRN ×2 (14:00)
[2018-09-21] MEDS ORDERED: Gelatin 12 MM/7 MM Topical Foam TOPICAL PRN (14:00)
[2018-09-21] MEDS ORDERED: Sod Chloride 0.9% Inj 1,000 ML IV.CONT PRN (14:00)
[2018-09-21] MEDS ORDERED: Heparin 10,000 UNITS/10 ML Vial (for IV use) OTHER PRN ×2 (14:00)
[2018-09-21] MEDS ORDERED: Acetaminophen 325 MG Tablet PO PRN (14:00)
--- NOTE | 2018-09-21 15:34 | ECG ---
Date Performed: 09/21/2018 Time Performed: 09:54:31 PTAGE: 68 years EKG: SINUS TACHYCARDIA POSSIBLE LEFT ATRIAL ENLARGEMENT INFERIOR MYOCARDIAL INFARCTION ABNORMAL ECG PREVIOUS TRACING : 11/08/2016 20.15 Compared to previous tracing,inferior RI pattern is new . D ifussse ST depression has improved. Clinical correlation is recommended DOCTOR: Stevie Everett Interpretating Date/Time 09/21/2018 15:34:14
[2018-09-21] MEDS: Insulin NovoLOG Aspart Correctional Sugar Inj SQ SCH ×2 (19:37→21:10)
[2018-09-21 20:42] LABS: Potassium 4.3 meq/L (3.5-5.1); Troponin I 0.14 ng/mL (0.02-0.05)
[2018-09-21] MEDS: Heparin - SQ 10,000 UNITS/ML Vial SQ SCH (21:09)
--- NOTE | 2018-09-21 22:25 | MB ---
cc: Lucio Rojas MD DATE: 09/21/2018 HISTORY OF PRESENT ILLNESS: He came to the hospital with worsening of his shortness of breath for 1 week. He has mild congestion in the chest, cough, small amount of sputum production. No fevers or chills. No night sweats. With symptoms, he went to see his primary care physician, pH 7.40, pCO2 of 41, pO2 77, bicarbonate 25, saturation 92%. Sodium 134, potassium 6.1, chloride 97, CO2 27, BUN 43, creatinine 7.65. He just finished his hemodialysis. PAST MEDICAL HISTORY: Significant for history of COPD, history of diabetes mellitus, end-stage renal disease, hypertension, history of TN in the past, history of AV fistula placement. MEDICATIONS: He is currently taking albuterol/Atrovent nebulizer treatment, aspirin 81 mg a day, clonidine patch gentamicin injection with dialysis, Levaquin 250 mg every 48 hours, nitroglycerin 0.4 mg. ALLERGIES: NO KNOWN DRUG ALLERGIES. SOCIAL HISTORY: He has a long history of smoking 1/2 pack a day, which he continues to smoke. Denies any alcohol abuse. 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 FAMILY HISTORY: He is . He lives alone. He has 1 son who lives in this area. He checks on him every day. REVIEW OF SYSTEMS: He is able to walk a block or so. Weight is stable. No DVT, pulmonary embolism. Denies any seizure, stroke, but he did have a bladder cancer. PHYSICAL EXAMINATION: GENERAL: Elderly male, mildly short of breath, not in acute distress. VITAL SIGNS: Blood pressure 174/105, heart rate 110, respirations 16, temperature 97.5. HEENT: Pupils are equal and reactive to light. He has bilateral cataracts. Oral mucosa and nasal mucosa are normal. NECK: JVP not raised. CHEST: Good Breath sounds bilat. He has few rhonchi. HEART: S1, S2 normal. ABDOMEN: Soft, nontender, nondistended. Bowel sounds are present. EXTREMITIES: No edema. CENTRAL NERVOUS SYSTEM: He is alert, oriented x3. No focal deficits. IMPRESSION: 1. Chronic obstructive pulmonary disease with mild exacerbation. 1. Hypertension. 2. Diabetes mellitus. 3. End-stage renal disease. 4. History of coronary artery disease. 5. History of cancer of the bladder. PLAN: We will give him aerosol treatment with albuterol and Atrovent, IV Solu-Medrol 40 mg every 8 hours. Monitor his blood sugar. Continue antibiotic. Supplement his oxygen. I will check his pulmonary function study. I advised him strongly to quit smoking. Further treatment will depend on the course in the hospital. Thank you, Dr. Najera, for this consult. MD ELIEZER Young/rw/do , 07:36 PM , 07:44 PM AYO
--- NOTE | 2018-09-22 00:17 | MB ---
cc: Rosita Mohamud MD DATE: 09/21/2018 REASON FOR CONSULTATION: End-stage renal disease, on hemodialysis, came in with shortness of breath and hyperkalemia. HISTORY OF PRESENT ILLNESS: This is a 68-year-old male known to me from before with a past medical history of ischemic heart disease, congestive heart failure, chronic obstructive pulmonary disease; end-stage renal disease on hemodialysis 3 times a week, Friday, and Friday, came to the hospital with complaint of worsening shortness of breath. I was called to see the patient for the management of dialysis. The patient has been on hemodialysis Friday, and Friday. He has been following with me and he had his last treatment done on Friday. The patient is very compliant with his dialysis treatment, but according to him, on Friday, he did not have much weight gain and did not remove much fluid during dialysis. He denies any nausea or vomiting. The patient recently was diagnosed with a complex cyst in the kidney, and he was supposed to have a kidney biopsy done by urology this week Friday as an outpatient. He noticed this worsening shortness of breath started Friday and then it was getting worse, and he eventually came to the hospital. The patient had this cough, which is productive of yellowish sputum since last week and I gave him azithromycin as outpatient, and he just completed the treatment for 5 days. He did not have any fever. Denies any chest pain. No nausea, vomiting. There is no palpitations. No abdominal pain. PAST MEDICAL HISTORY: Hypertension, ischemic heart disease, congestive heart failure, chronic obstructive pulmonary disease, diabetes mellitus. PAST SURGICAL HISTORY: AV fistula surgery. REVIEW OF SYSTEMS: The patient has gradual worsening of shortness of breath. He denies any chest pain. He has cough with yellowish sputum. There is no history of fever. There is no headache or dizziness. No nausea, vomiting. No abdominal pain. No history of diarrhea. SOCIAL HISTORY: The patient is a chronic smoker, smokes about 1/2 pack per day. There is no history of heavy alcoholism. FAMILY HISTORY: Noncontributory. ALLERGIES: HE HAS NO KNOWN DRUG ALLERGIES. MEDICATIONS: Currently, he is on following medications: Tylenol as needed, albuterol as needed, DuoNeb as needed, aspirin 81 mg once a day, clonidine 0.1 mg p.r.n., Benadryl p.r.n., Levaquin 250 mg q.48 hours, methylprednisolone 40 mg IV q.8 hours, Zofran as needed. He received 1 dose of Kayexalate, calcium chloride and dextrose insulin. PHYSICAL EXAMINATION: GENERAL: I saw the patient during his dialysis and after. VITAL SIGNS: His blood pressure was around 121/76, temperature is 98.2, oxygen saturation on 2 liters nasal cannula 96% to 97%. HEENT: Pupils are a bit constricted. Nonicteric sclerae. Conjunctivae normal. NECK: Supple. JVP is not elevated. LUNGS: The patient has bilateral decreased air entry with basal rales and scattered wheezing. HEART: S1, S2. Regular rate and rhythm. ABDOMEN: Distended, soft, lax. There is no tenderness. Bowel sounds positive. EXTREMITIES: He has mild pedal edema. LABORATORY DATA: WBC count is 8.3, hemoglobin 16.2, platelet count of 108, neutrophils 73.8. Arterial blood gas showing pH of 7.40, pCO2 of 41, pO2 of 77. Sodium 134, potassium 6.1, chloride 97, bicarbonate 37.6, BUN 43, creatinine 7.65, glucose 194, calcium 9.3, magnesium 2.6, total bilirubin 1.1, AST is 38, ALT is 29. Troponin 0.14. Total protein is 9.8, albumin 3.6. IMAGING STUDIES: The patient had a chest x-ray done, which shows that he has hyperinflated lungs. There is no definite infiltrate. Changes of COPD. ASSESSMENT AND PLAN: 1. Chronic obstructive pulmonary disease with exacerbation. 2. Hyperkalemia. 3. End-stage renal disease on hemodialysis. 4. Possible acute bronchitis. 5. History of bladder cancer and a complex cyst in the kidney. 6. Diabetes mellitus The patient with history of end-stage renal disease on hemodialysis Friday, and Friday, now coming in with hyperkalemia and some fluid overload status. For that reason, the patient will dialyze today, although this is not his regular day. He will get short dialysis tomorrow to put him back on his regular schedule. When I saw the patient during dialysis, he was tolerating it well. His blood pressure was stable, and we were trying to remove 2 liters of fluid. Continue the antibiotic and treatment for COPD. The patient was seen by pulmonary. Follow their recommendation. Thank you for the consultation. I will follow the patient while in the hospital. MD ADALBERTO Gaytan/nilda , 10:46 PM , 10:58 PM
[2018-09-22] MEDS: MethylPREDNISolone Sod Succinate Inj 40 MG/ML Vial IV.PUSH SCH ×3 (05:55→22:31)
--- NOTE | 2018-09-22 07:31 | P.PN ---
Subjective Interval history: Follow up on patient with AECOPD exacerbation. Patient seen and examined. Patient states his breathing is a little better. He does not use oxygen at home. He says he is going to stop smoking. He says he feels like he needs to cough something up but he cannot expel any sputum. He denies any fever or chills. He denies any chest pain. He reports poor appetite due to having no interest in food. He denies any swallowing difficulties. He is interested in medication that would improve his appetite. He denies any N/V or abdominal pain. He was last hospitalized 2 years ago with COPD exacerbation but reports being hospitalized for 2 years prior to that this time of year with exacerbations. He says he is diabetic. Physical Exam Vital signs: Vital Signs 09/21/18 09:24 09/21/18 09:30 09/21/18 09:35 Temperature 98.6 F Pulse Rate 96 H 89 111 H Respiratory Rate 16 16 Blood Pressure 199/108 H 178/89 H Pulse Oximetry 100 98 09/21/18 09:57 09/21/18 10:02 09/21/18 10:33 Temperature Pulse Rate 103 H 108 H Respiratory Rate 20 28 H Blood Pressure Pulse Oximetry 100 100 09/21/18 12:00 09/21/18 12:07 09/21/18 20:00 Temperature 97.5 F L 98.2 F Pulse Rate 110 H 104 H 116 H Respiratory Rate 16 16 18 Blood Pressure 174/105 H 197/96 H 121/75 Pulse Oximetry 94 L 98 97 09/21/18 20:28 09/21/18 23:14 09/22/18 00:00 Temperature 97.6 F Pulse Rate 110 H 104 H 109 H Respiratory Rate 24 24 18 Blood Pressure 148/85 H Pulse Oximetry 96 100 09/22/18 03:36 09/22/18 04:00 Temperature 97.6 F Pulse Rate 110 H 116 H Respiratory Rate 24 18 Blood Pressure 151/78 H Pulse Oximetry 98 95 Intake & Output 09/21/18 09/22/18 09/22/18 18:59 06:59 18:59 Intake Total 110 / 110 20 / 20 Output Total 2500 / 2500 Balance -2390 / -2390 20 20 Weight 49.895 kg 51.2 kg Intake: IV 110 / 110 20 / 20 Calcium Chloride Inj 1 GM In NS 110 / 110 Inj 100 ML @ 110 mls/hr IV.SIG ONCE ONE Rx#:[id number] Levaquin 500 mg Premix Inj 500 20 / 20 mg In 100 ml @ 100 mls/hr IV. SIG ONCE ONE Rx#:[id number] Output: Hemodialysis Amount 2500 / 2500 Other: # Voids 0 Narrative: GENERAL: Extremely thin very pleasant male patient, INAD. Awake and alert. SKIN: Warm and dry. HEAD: Atraumatic. Normocephalic. EYES: Pupils equal and round. No scleral icterus. No injection or drainage. ENT: No nasal bleeding or discharge. Mucous membranes pink and moist. Poor dentition. NECK: Trachea midline. CARDIOVASCULAR: Regular rate and rhythm. RESPIRATORY: No accessory muscle use. Tight air entry. Mild expiratory wheezing noted. GASTROINTESTINAL: Abdomen soft, non-tender, nondistended. +BS. MUSCULOSKELETAL: Extremities without clubbing, cyanosis, or edema. No obvious deformities. NEUROLOGICAL: Awake and alert. No obvious cranial nerve deficits. Motor grossly within normal limits. Able to move all extremities spontaneously. Normal speech. PSYCHIATRIC: Appropriate mood and affect; insight and judgment normal. Results - Labs CBC & Chem 7: 09/21/18 09:41 09/21/18 19:06 Laboratory Results - last 24 hr 09/21/18 09/21/18 09/21/18 09:41 09:41 13:00 WBC 8.3 RBC 4.92 Hgb 16.2 Hct 46.6 MCV 94.7 MCH 33.0 MCHC 34.9 RDW 13.5 Plt Count 108 L MPV 9.0 Neut % (Auto) 73.8 H Lymph % (Auto) 14.3 [place] % (Auto) 11.7 H Eos % (Auto) 0.0 Baso % (Auto) 0.2 Neut # (Auto) 6.1 Lymph # (Auto) 1.2 [place] # (Auto) 1.0 H Eos # (Auto) 0.0 Baso # (Auto) 0.0 WBC Differential . Differential Comment Auto diff final Puncture Site Left radial Patient Temperature 98.6 O2 Saturation 92 ABG pH 7.40 ABG pCO2 41 ABG pO2 77 ABG HCO3 25 ABG O2 Content 21.5 H ABG Base Excess 0.9 ABG Methemoglobin 1.1 Kenan Test Present Hemoglobin 16.5 H Carboxyhemoglobin 1.4 O2 Delivery Device Nasal cannula Liter Flow 3.00 Critical Value No Sodium 134 L Potassium 6.1 H Chloride 97 L Carbon Dioxide 27.6 Anion Gap 9 BUN 43 H Creatinine 7.65 H Estimated GFR 9 L POC Glucose Random Glucose 194 H Calcium 9.3 Magnesium 2.6 H Total Bilirubin 1.1 H AST 38 H ALT 29 Alkaline Phosphatase 90 Troponin I 0.14 H Total Protein 9.8 H Albumin 3.6 09/21/18 09/21/18 09/21/18 18:07 19:06 20:12 WBC RBC Hgb Hct MCV MCH MCHC RDW Plt Count MPV Neut % (Auto) Lymph % (Auto) [place] % (Auto) Eos % (Auto) Baso % (Auto) Neut # (Auto) Lymph # (Auto) [place] # (Auto) Eos # (Auto) Baso # (Auto) WBC Differential Differential Comment Puncture Site Patient Temperature O2 Saturation ABG pH ABG pCO2 ABG pO2 ABG HCO3 ABG O2 Content ABG Base Excess ABG Methemoglobin Kenan Test Hemoglobin Carboxyhemoglobin O2 Delivery Device Liter Flow Critical Value Sodium Potassium 4.3 D Chloride Carbon Dioxide Anion Gap BUN Creatinine Estimated GFR POC Glucose 118 H 352 H Random Glucose Calcium Magnesium Total Bilirubin AST ALT Alkaline Phosphatase Troponin I 0.14 H Total Protein Albumin 09/22/18 01:00 WBC RBC Hgb Hct MCV MCH MCHC RDW Plt Count MPV Neut % (Auto) Lymph % (Auto) [place] % (Auto) Eos % (Auto) Baso % (Auto) Neut # (Auto) Lymph # (Auto) [place] # (Auto) Eos # (Auto) Baso # (Auto) WBC Differential Differential Comment Puncture Site Patient Temperature O2 Saturation ABG pH ABG pCO2 ABG pO2 ABG HCO3 ABG O2 Content ABG Base Excess ABG Methemoglobin Kenan Test Hemoglobin Carboxyhemoglobin O2 Delivery Device Liter Flow Critical Value Sodium Potassium Chloride Carbon Dioxide Anion Gap BUN Creatinine Estimated GFR POC Glucose Random Glucose Calcium Magnesium Total Bilirubin AST ALT Alkaline Phosphatase Troponin I 0.13 H Total Protein Albumin - Imaging Impressions Chest X-Ray 09/21/18 09:38 CONCLUSION: COPD changes. No acute abnormality. Assessment and Plan - Plan 68 y/o male with history of ESRD- on HD,COPD, hypertension who presented to ER with shortness of breath. COPD exacerbation Ongoing tobaccoism -Pulmonary following, appreciate assistance. Patient completed 5 days of azithromycin as outpatient. PFTs ordered. -Continue on IV steroids, bronchodilatory therapy -Add Mucinex BID -continue to monitor respiratory status - currently satting 98% on 2L NC -discussed smoking cessation/counseling -may need home oxygen walk test prior to discharge ESRD on HD patient dialyzed yesterday out of his regular TTSa schedule due to mild fluid overload -Nephrology managing HD, appreciate assistance. Plan for short dialysis today to have patient resume his regular schedule. Hyperkalemia patient received Kayexalate, insulin and bicarb in ED -repeat K WNL -monitor K as indicated DM blood sugars poorly controlled on IV steroids -change to diabetic heart healthy renal diet -begin accuchecks and cover with insulin sliding scale -start on Levemir 5u BID -will resume home insulin dose once med rec completed Elevated troponins EKG with no ischemic changes noted patient has no cardiac complaints -troponins elevated but flat -suspect secondary to ESRD -continue on ASA daily Hx of bladder cancer Complex kidney cyst -patient scheduled for kidney bx tomorrow as outpatient. Patient will need to reschedule his appt for biopsy as outpatient. 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 Massey Discharge Planning: Not ready for discharge
[2018-09-22] MEDS: Heparin - SQ 10,000 UNITS/ML Vial SQ SCH ×2 (09:32→22:30)
[2018-09-22] MEDS: Megestrol Acetate Liq 400 MG/10 ML UDC PO SCH (09:36)
[2018-09-22] MEDS: Insulin NovoLOG Aspart Correctional Sugar Inj SQ SCH ×4 (09:37→22:08)
[2018-09-22] MEDS: Insulin Detemir Inj 1,000 UNIT/10 ML Vial SQ SCH ×2 (11:58→22:31)
[2018-09-22] MEDS: guaiFENesin 600 MG ER Tablet PO SCH ×2 (11:59→22:31)
--- NOTE | 2018-09-22 14:04 | P.DIET ---
Nutritional Evaluation Type of nutrition evaluation: initial Nutrition screening: [facility] (Poor PO Intake) Subjective Subjective Comments: PO intake for 09/21: D-100%. For 10/02: B-75%, L-100%. Objective - Diagnosis SOB - Objective Body Mass Index: 16.7 % IBW: 70 (IBW = 160#) Body Weight Used for Calculations: Actual (51.2 kg) Energy Needs - Lower Range (kCal/kg): 30 Energy Needs - Upper Range (kCal/kg): 35 Lower Limit kCal/kg (kCals): 1,536 Upper Limit kCal/kg (kCals): 1,792 Lower Limit Protein Factor (Grams per Kg): 1.2 Upper Limit Protein Factor (Grams per Kg): 1.5 Lower Protein Needs (Protein): 61 Upper Protein Needs (Protein): 77 Dietitian Reviewed in Medical Record: Current diet, Curent medications, Intake & Output, Labs, Medical history Diet Order: Reanl, Cardiac, Diabetic, 1999 ADA, 2 gm Na Objective Comments: Med hx includes COPD, ESRD on dialysis, HTN, AL, DM POC glu 352, 236, 344 HgA1c pending Meds include Megace (just started ) Assessment Assessment: Pt is at high nutrition risk 2' to low wt for ht with a BMI of 16.7. Poor po intake has been reported, however, pt appears to be eating well since admission. RD will monitor intake and continue to assess for the need of supplements. Glucose in poor control so do not want to increase CHO-controlled diet any further at this time. RD following. Recommendations: Continue current POC Dietitian to Monitor: Lab values, Glucose level, Intake & Output, Diet tolerance , Weight change, PO Intake, Medical course
--- NOTE | 2018-09-22 15:17 | P.PNNP ---
Subjective Interval history: Seen in AM. Shortness of breath has improved. Reports that he is having hard time bringing up secretions. <Page Carrington - Last Filed: 09/22/18 15:03> Physical Exam Vital signs: Vital Signs 09/21/18 20:00 09/21/18 20:28 09/21/18 23:14 Temperature 98.2 F Pulse Rate 116 H 110 H 104 H Respiratory Rate 18 24 24 Blood Pressure 121/75 Pulse Oximetry 97 96 09/22/18 00:00 09/22/18 03:36 09/22/18 04:00 Temperature 97.6 F 97.6 F Pulse Rate 109 H 110 H 116 H Respiratory Rate 18 24 18 Blood Pressure 148/85 H 151/78 H Pulse Oximetry 100 98 95 09/22/18 08:00 09/22/18 08:23 09/22/18 11:41 Temperature 97.8 F Pulse Rate 111 H 103 H Respiratory Rate 18 18 Blood Pressure 153/82 H Pulse Oximetry 98 98 99 09/22/18 12:00 Temperature 98.6 F Pulse Rate 123 H Respiratory Rate 16 Blood Pressure 127/72 Pulse Oximetry 94 L Intake & Output 09/21/18 09/22/18 09/22/18 18:59 06:59 18:59 Intake Total 110 / 110 20 / 20 Output Total 2500 / 2500 Balance -2390 / -2390 20 Weight 49.895 kg 51.2 kg Intake: IV 110 / 110 20 / 20 Calcium Chloride Inj 1 GM In NS 110 / 110 Inj 100 ML @ 110 mls/hr IV.SIG ONCE ONE Rx#:[id number] Levaquin 500 mg Premix Inj 500 20 / 20 mg In 100 ml @ 100 mls/hr IV. SIG ONCE ONE Rx#:[id number] Output: Hemodialysis Amount 2500 / 2500 Other: # Voids 0 Date of Last Bowel Movement 09/21/18 Narrative: GENERAL: Alert and oriented. NAD SKIN: Warm and dry. NECK: Trachea midline. Negative JVD. CARDIOVASCULAR: Regular rate and rhythm. AVF with positive thrill and bruit. RESPIRATORY: No accessory muscle use. Lung sounds diminished.. GASTROINTESTINAL: Abdomen soft, non-tender, nondistended. +BS. MUSCULOSKELETAL: Extremities without clubbing, cyanosis, or edema. No obvious deformities. NEUROLOGICAL: Awake and alert. Able to move all extremities spontaneously. Normal speech. PSYCHIATRIC: Appropriate mood and affect; insight and judgment normal. <Page Carrington - Last Filed: 09/22/18 15:03> Vital signs: Vital Signs 09/23/18 15:17 09/23/18 16:00 09/23/18 18:28 Temperature 97.9 F Pulse Rate 111 H 106 H 91 H Respiratory Rate 20 18 Blood Pressure 142/75 H Pulse Oximetry 98 09/23/18 19:56 09/23/18 20:00 09/24/18 00:03 Temperature 97.3 F L 98.0 F Pulse Rate 113 H 119 H 111 H Respiratory Rate 20 21 18 Blood Pressure 117/75 142/72 H Pulse Oximetry 98 98 09/24/18 00:13 09/24/18 03:45 09/24/18 04:00 Temperature 97.6 F Pulse Rate 111 H 107 H 104 H Respiratory Rate 18 Blood Pressure 133/73 Pulse Oximetry 94 L 09/24/18 08:00 09/24/18 08:34 09/24/18 10:40 Temperature 97.8 F 97.8 F Pulse Rate 104 H 100 H 90 Respiratory Rate 20 18 18 Blood Pressure 151/76 H 148/86 H Pulse Oximetry 94 L 98 90 L 09/24/18 11:04 Temperature Pulse Rate 100 H Respiratory Rate 20 Blood Pressure 141/85 H Pulse Oximetry 93 L Intake & Output 09/23/18 09/24/18 09/24/18 18:59 06:59 18:59 Intake Total 980 / 980 Output Total 1999 Balance -1020 / -1020 Weight 53.1 kg Intake: Oral 980 / 980 Output: Hemodialysis Amount 1999 Other: # Voids 0 3 Date of Last Bowel Movement 09/21/18 09/24/18 09/24/18 # Bowel Movements 0 1 <Rosita Mohamud - Last Filed: 09/24/18 11:33> Assessment and Plan - Assessment (1) End-stage renal disease on hemodialysis Code(s): N18.6 - End stage renal disease; Z99.2 - Dependence on renal dialysis Status: Acute Plan: End stage renal disease on hemodialysis Friday//Friday Hemodialysis yesterday with removal of 2.5 liters of fluid Hemodialysis today to put on schedule or will be done in AM Renal panel in AM. (2) Protein calorie malnutrition Code(s): E46 - Unspecified protein-calorie malnutrition Status: Acute Plan: Dietary consult. Megace started as appetite stimulant. (3) Diabetes Code(s): E11.9 - Type 2 diabetes mellitus without complications Status: Acute Plan: Recommend Blood sugars between 140 mg/dl to 180 mg/dl while hospitalized. (4) COPD exacerbation Code(s): J44.1 - Chronic obstructive pulmonary disease with (acute) exacerbation Status: Acute Plan: On antibiotics and steroids. <Page Carrington - Last Filed: 09/22/18 15:03> - Assessment (1) End-stage renal disease on hemodialysis Code(s): N18.6 - End stage renal disease; Z99.2 - Dependence on renal dialysis Status: Acute Plan: Patient seen and examined, agree with above. HD will be in AM again, Breathing is better. (2) Protein calorie malnutrition Code(s): E46 - Unspecified protein-calorie malnutrition Status: Acute (3) Diabetes Code(s): E11.9 - Type 2 diabetes mellitus without complications Status: Acute (4) COPD exacerbation Code(s): J44.1 - Chronic obstructive pulmonary disease with (acute) exacerbation Status: Acute (5) Hx of bladder cancer Code(s): Z85.51 - Personal history of malignant neoplasm of bladder Status: Acute <Rosita Mohamud - Last Filed: 09/24/18 11:33>
[2018-09-22] MEDS ORDERED: Metoprolol Tartrate 25 MG Tablet PO ONE (17:00)
[2018-09-22 17:43] LABS: Creatine Kinase 113 U/L (39-308); Troponin I 0.12 ng/mL (0.02-0.05)
[2018-09-22 17:55] LABS: Creatine Kinase MB 2.9 ng/mL (0.5-3.6)
[2018-09-22 18:19] LABS: Hemoglobin A1c 6.2 % (4.3-6.0)
--- NOTE | 2018-09-22 19:05 | P.PNPL ---
Subjective Interval history: 68 YOAA male with COPD exac, ESRD Breathing betetr Wheezing improved Weaned to RA Physical Exam Vital signs: Vital Signs 09/21/18 20:00 09/21/18 20:28 09/21/18 23:14 Temperature 98.2 F Pulse Rate 116 H 110 H 104 H Respiratory Rate 18 24 24 Blood Pressure 121/75 Pulse Oximetry 97 96 09/22/18 00:00 09/22/18 03:36 09/22/18 04:00 Temperature 97.6 F 97.6 F Pulse Rate 109 H 110 H 116 H Respiratory Rate 18 24 18 Blood Pressure 148/85 H 151/78 H Pulse Oximetry 100 98 95 09/22/18 08:00 09/22/18 08:23 09/22/18 11:41 Temperature 97.8 F Pulse Rate 111 H 103 H Respiratory Rate 18 18 Blood Pressure 153/82 H Pulse Oximetry 98 98 99 09/22/18 12:00 09/22/18 16:00 09/22/18 16:36 Temperature 98.6 F 97.2 F L Pulse Rate 123 H 130 H 121 H Respiratory Rate 16 16 20 Blood Pressure 127/72 138/88 Pulse Oximetry 94 L 99 09/22/18 18:22 Temperature Pulse Rate 110 H Respiratory Rate Blood Pressure Pulse Oximetry Intake & Output 09/22/18 09/22/18 09/23/18 06:59 18:59 06:59 Intake Total 20 / 20 Balance 20 / 20 Weight 51.2 kg Intake: IV 20 / 20 Levaquin 500 mg Premix Inj 500 20 / 20 mg In 100 ml @ 100 mls/hr IV. SIG ONCE ONE Rx#:[id number] Other: # Voids 0 Date of Last Bowel Movement 09/21/18 GENERAL: Elderly AA male, NAD SKIN: Warm and dry. HEAD: Normocephalic. EYES: No scleral icterus. No injection or drainage. NECK: Supple, trachea midline. No JVD or lymphadenopathy. CARDIOVASCULAR: Regular rate and rhythm without murmurs, gallops, or rubs. RESPIRATORY: Breath sounds equal bilaterally. No accessory muscle use. GASTROINTESTINAL: Abdomen soft, non-tender, nondistended. MUSCULOSKELETAL: No cyanosis, or edema. BACK: Nontender without obvious deformity. No CVA tenderness. Assessment and Plan - Plan IMPRESSION: 1. Chronic obstructive pulmonary disease with mild exacerbation. 1. Hypertension. 2. Diabetes mellitus. 3. End-stage renal disease. 4. History of coronary artery disease. 5. History of cancer of the bladder. PLAN: Aerosol nebs IV Solumedrol Cont Abx Bedside PFT Stable on RA
[2018-09-22] MEDS: RESP: Levalbuterol 1.25 MG/3 ML Neb (SCH) NEB (21:37)
[2018-09-22] MEDS ORDERED: Bisacodyl 10 MG Supp RECTAL PRN (22:57)
[2018-09-23] MEDS: MethylPREDNISolone Sod Succinate Inj 40 MG/ML Vial IV.PUSH SCH ×3 (06:58→21:56)
--- NOTE | 2018-09-23 07:37 | P.PN ---
Subjective Interval history: Follow-up on patient with COPD exacerbation. Patient states he feels much better. He denies any complaints of shortness of breath. He is breathing comfortably on room air. He states his breathing has returned to baseline. He denies any fever or chills. He denies any sputum production. Patient states that he was able to walk several times around the room and to and from the bathroom without any shortness of breath. Denies any complaints of chest pain or palpitations. He denies any nausea, vomiting or abdominal pain. He does complain of a sore throat. He denies any difficulty swallowing. Physical Exam Vital signs: Vital Signs 09/22/18 08:00 09/22/18 08:23 09/22/18 11:41 Temperature 97.8 F Pulse Rate 111 H 103 H Respiratory Rate 18 18 Blood Pressure 153/82 H Pulse Oximetry 98 98 99 09/22/18 12:00 09/22/18 16:00 09/22/18 16:36 Temperature 98.6 F 97.2 F L Pulse Rate 123 H 130 H 121 H Respiratory Rate 16 16 20 Blood Pressure 127/72 138/88 Pulse Oximetry 94 L 99 09/22/18 18:22 09/22/18 20:00 09/22/18 21:38 Temperature 98.7 F Pulse Rate 110 H 96 H Respiratory Rate 20 Blood Pressure 129/74 Pulse Oximetry 96 97 09/22/18 21:39 09/23/18 00:00 09/23/18 04:00 Temperature 98.0 F 97.8 F Pulse Rate 97 H 102 H 96 H Respiratory Rate 15 18 17 Blood Pressure 150/77 H 140/75 Pulse Oximetry 100 95 Intake & Output 09/22/18 09/23/18 09/23/18 18:59 06:59 18:59 Intake Total 60 / 60 Balance 60 / 60 Weight 53.1 kg Intake: Oral 60 / 60 Other: # Voids 3 Date of Last Bowel Movement 09/21/18 Narrative: GENERAL: Extremely thin very pleasant male patient, INAD. Awake and alert. Appears comfortable lying in bed. SKIN: Warm and dry. HEENT: Atraumatic. Normocephalic. Pupils equal and round. No scleral icterus. No injection or drainage. No nasal bleeding or discharge. Mucous membranes pink and moist. Poor dentition. +oral thrush. NECK: Trachea midline. CARDIOVASCULAR: Regular rate and rhythm. RESPIRATORY: No accessory muscle use. Fair air entry. No wheezing noted. GASTROINTESTINAL: Abdomen soft, non-tender, nondistended. +BS. MUSCULOSKELETAL: Extremities without clubbing, cyanosis, or edema. No obvious deformities. NEUROLOGICAL: Awake and alert. No obvious cranial nerve deficits. Motor grossly within normal limits. Able to move all extremities spontaneously. Normal speech. PSYCHIATRIC: Appropriate mood and affect; insight and judgment normal. Results - Labs CBC & Chem 7: 09/21/18 09:41 09/21/18 19:06 Laboratory Results - last 24 hr 09/22/18 09/22/18 09/22/18 08:17 09:45 11:27 POC Glucose 236 H 344 H Hemoglobin A1c 6.2 H Total Creatine Kinase CK-MB (CK-2) Troponin I 09/22/18 09/22/18 09/22/18 16:46 16:59 22:05 POC Glucose 253 H 113 H Hemoglobin A1c Total Creatine Kinase 113 CK-MB (CK-2) 2.9 Troponin I 0.12 H Assessment and Plan - Plan 68 y/o male with history of ESRD- on HD,COPD, hypertension who presented to ER with shortness of breath. COPD exacerbation, resolving Ongoing tobaccoism -Pulmonary following, appreciate assistance. Patient completed 5 days of azithromycin as outpatient. PFTs ordered. -Continue on IV steroids, bronchodilatory therapy -Mucinex BID -continue to monitor respiratory status - currently satting 95% on RA. -discussed smoking cessation/counseling ESRD on HD patient dialyzed yesterday out of his regular TTSa schedule due to mild fluid overload -Nephrology managing HD, appreciate assistance. Patient did not have HD yesterday, going down for HD today. Hyperkalemia patient received Kayexalate, insulin and bicarb in ED -repeat K WNL -monitor K as indicated DM blood sugars poorly controlled on IV steroids -change to diabetic heart healthy renal diet -continue accuchecks and cover with insulin sliding scale -started on Levemir 5u BID while on IV steroids. Patents Hgb 6.2. He does not take any diabetic medications at home due to hypoglycemic episode. Do not plan to discharge on long-acting insulin. Elevated troponins EKG with no ischemic changes noted patient has no cardiac complaints -troponins elevated but flat -suspect secondary to ESRD -continue on ASA daily Hx of bladder cancer Complex kidney cyst -patient scheduled for kidney bx tomorrow as outpatient. Patient will need to reschedule his appt for biopsy as outpatient. 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 Massey Discharge Planning: Possible discharge later today if cleared by nephrology and pulmonary medicine
[2018-09-23] MEDS: Megestrol Acetate Liq 400 MG/10 ML UDC PO SCH (08:20)
[2018-09-23] MEDS: Insulin Detemir Inj 1,000 UNIT/10 ML Vial SQ SCH ×2 (08:21→20:35)
[2018-09-23] MEDS: guaiFENesin 600 MG ER Tablet PO SCH ×2 (08:21→20:35)
[2018-09-23] MEDS: Heparin - SQ 10,000 UNITS/ML Vial SQ SCH ×2 (08:21→20:34)
[2018-09-23] MEDS: Insulin NovoLOG Aspart Correctional Sugar Inj SQ SCH ×4 (08:30→20:35)
[2018-09-23] MEDS ORDERED: Levofloxacin 250 mg Premix Inj 250 MG/50 ML PIGGYBACK IV.SIG SCH (09:00)
[2018-09-23 11:05] LABS: Albumin 3.2 g/dL (3.4-5.0); Calcium 9.1 mg/dL (8.5-10.1); Carbon Dioxide 22.7 meq/L (21.0-32.0); Phosphorus 6.1 mg/dL (2.5-4.9)
[2018-09-23 11:07] LABS: Potassium 5.5 meq/L (3.5-5.1)
--- NOTE | 2018-09-23 11:38 | P.PNNP ---
Subjective Interval history: Seen in AM during hemodialysis today, tolerating well. POA requesting that kidney biopsy be done while admission. <Page Carrington - Last Filed: 09/23/18 17:34> Physical Exam Vital signs: Vital Signs 09/22/18 11:41 09/22/18 12:00 09/22/18 16:00 Temperature 98.6 F 97.2 F L Pulse Rate 123 H 130 H Respiratory Rate 16 16 Blood Pressure 127/72 138/88 Pulse Oximetry 99 94 L 99 09/22/18 16:36 09/22/18 18:22 09/22/18 20:00 Temperature 98.7 F Pulse Rate 121 H 110 H 96 H Respiratory Rate 20 20 Blood Pressure 129/74 Pulse Oximetry 96 09/22/18 21:38 09/22/18 21:39 09/23/18 00:00 Temperature 98.0 F Pulse Rate 97 H 102 H Respiratory Rate 15 18 Blood Pressure 150/77 H Pulse Oximetry 97 100 09/23/18 04:00 09/23/18 08:00 Temperature 97.8 F 97.7 F Pulse Rate 96 H 85 Respiratory Rate 17 18 Blood Pressure 140/75 162/90 H Pulse Oximetry 95 95 Intake & Output 09/22/18 09/23/18 09/23/18 18:59 06:59 18:59 Intake Total 60 / 60 Balance 60 / 60 Weight 53.1 kg Intake: Oral 60 / 60 Other: # Voids 3 Date of Last Bowel Movement 09/21/18 09/21/18 Narrative: GENERAL: Thin very pleasant male patient, NAD. Awake and alert. Appears comfortable. SKIN: Warm and dry. CARDIOVASCULAR: Regular rate and rhythm. AVF with positive thrill and bruit. RESPIRATORY: No accessory muscle use. lungs diminished to auscultation. GASTROINTESTINAL: Abdomen soft, non-tender, nondistended. +BS. MUSCULOSKELETAL: Extremities without clubbing, cyanosis, or edema. No obvious deformities. NEUROLOGICAL: Awake and alert. No obvious cranial nerve deficits. Motor grossly within normal limits. Able to move all extremities spontaneously. Normal speech. <Page Carrington - Last Filed: 09/23/18 17:34> Vital signs: Vital Signs 09/23/18 15:17 09/23/18 16:00 09/23/18 18:28 Temperature 97.9 F Pulse Rate 111 H 106 H 91 H Respiratory Rate 20 18 Blood Pressure 142/75 H Pulse Oximetry 98 09/23/18 19:56 09/23/18 20:00 09/24/18 00:03 Temperature 97.3 F L 98.0 F Pulse Rate 113 H 119 H 111 H Respiratory Rate 20 21 18 Blood Pressure 117/75 142/72 H Pulse Oximetry 98 98 09/24/18 00:13 09/24/18 03:45 09/24/18 04:00 Temperature 97.6 F Pulse Rate 111 H 107 H 104 H Respiratory Rate 18 Blood Pressure 133/73 Pulse Oximetry 94 L 09/24/18 08:00 09/24/18 08:34 09/24/18 10:40 Temperature 97.8 F 97.8 F Pulse Rate 104 H 100 H 90 Respiratory Rate 20 18 18 Blood Pressure 151/76 H 148/86 H Pulse Oximetry 94 L 98 90 L 09/24/18 11:04 Temperature Pulse Rate 100 H Respiratory Rate 20 Blood Pressure 141/85 H Pulse Oximetry 93 L Intake & Output 09/23/18 09/24/18 09/24/18 18:59 06:59 18:59 Intake Total 980 / 980 Output Total 1999 Balance -1020 / -1020 Weight 53.1 kg Intake: Oral 980 / 980 Output: Hemodialysis Amount 1999 Other: # Voids 0 3 Date of Last Bowel Movement 09/21/18 09/24/18 09/24/18 # Bowel Movements 0 1 <Rosita Mohamud - Last Filed: 09/24/18 11:57> Assessment and Plan - Assessment (1) End-stage renal disease on hemodialysis Code(s): N18.6 - End stage renal disease; Z99.2 - Dependence on renal dialysis Status: Acute Plan: End stage renal disease on hemodialysis Friday//Friday Hemodialysis today, k bath adjusted with dialysis. UF of 2 liters HD tomorrow to place back on HD schedule. (2) Protein calorie malnutrition Code(s): E46 - Unspecified protein-calorie malnutrition Status: Acute Plan: Dietary consult. Megace started as appetite stimulant. (3) Diabetes Code(s): E11.9 - Type 2 diabetes mellitus without complications Status: Acute Plan: Recommend Blood sugars between 140 mg/dl to 180 mg/dl while hospitalized. (4) COPD exacerbation Code(s): J44.1 - Chronic obstructive pulmonary disease with (acute) exacerbation Status: Acute Plan: On antibiotics and steroids. (5) Hx of bladder cancer Code(s): Z85.51 - Personal history of malignant neoplasm of bladder Status: Acute Plan: Hx of bladder cancer, Complex kidney cyst -patient scheduled for kidney bx, referral placed for interventional. <Page Carrington - Last Filed: 09/23/18 17:34> - Assessment (1) End-stage renal disease on hemodialysis Code(s): N18.6 - End stage renal disease; Z99.2 - Dependence on renal dialysis Status: Acute Plan: Patient seen and examined, agree with above. HD tomorrow again to put him back on his schedule. Need Kidney mass Biopsy, was scheduled as out patient, will try to get it here. (2) Protein calorie malnutrition Code(s): E46 - Unspecified protein-calorie malnutrition Status: Acute (3) Diabetes Code(s): E11.9 - Type 2 diabetes mellitus without complications Status: Acute (4) COPD exacerbation Code(s): J44.1 - Chronic obstructive pulmonary disease with (acute) exacerbation Status: Acute (5) Hx of bladder cancer Code(s): Z85.51 - Personal history of malignant neoplasm of bladder Status: Acute <Rosita Mohamud - Last Filed: 09/24/18 11:57>
--- NOTE | 2018-09-23 12:32 | ECG ---
Date Performed: 09/22/2018 Time Performed: 17:45:14 PTAGE: 68 years EKG: SINUS TACHYCARDIA POSSIBLE LEFT ATRIAL ENLARGEMENT ABNORMAL RHYTHM ECG PREVIOUS TRACING : 09/21/2018 09.54 DOCTOR: James Bhakta Interpretating Date/Time 09/23/2018 12:31:26
[2018-09-23] MEDS: RESP: Levalbuterol 1.25 MG/3 ML Neb (SCH) NEB ×4 (13:01→19:56)
[2018-09-23] MEDS: Nystatin Liq 500,000 UNIT/5 ML UDC SWISH-SWAL SCH ×3 (13:02→20:36)
--- NOTE | 2018-09-23 19:19 | P.PNPL ---
Subjective Interval history: 68 YOAA male with COPD exac, ESRD Breathing betetr Wheezing improved Using 02 2LNC Appetite improving. Physical Exam Vital signs: Vital Signs 09/22/18 20:00 09/22/18 21:38 09/22/18 21:39 Temperature 98.7 F Pulse Rate 96 H 97 H Respiratory Rate 20 15 Blood Pressure 129/74 Pulse Oximetry 96 97 09/23/18 00:00 09/23/18 04:00 09/23/18 08:00 Temperature 98.0 F 97.8 F 97.7 F Pulse Rate 102 H 96 H 85 Respiratory Rate 18 17 18 Blood Pressure 150/77 H 140/75 162/90 H Pulse Oximetry 100 95 95 09/23/18 15:17 09/23/18 16:00 09/23/18 18:28 Temperature 97.9 F Pulse Rate 111 H 106 H 91 H Respiratory Rate 20 18 Blood Pressure 142/75 H Pulse Oximetry 98 Intake & Output 09/23/18 09/23/18 09/24/18 06:59 18:59 06:59 Intake Total 60 / 60 Output Total 1999 Balance 60 / 60 -1999 Weight 53.1 kg Intake: Oral 60 / 60 Output: Hemodialysis Amount 1999 Other: # Voids 3 Date of Last Bowel Movement 09/21/18 GENERAL: Elderly AA male, NAD SKIN: Warm and dry. HEAD: Normocephalic. EYES: No scleral icterus. No injection or drainage. NECK: Supple, trachea midline. No JVD or lymphadenopathy. CARDIOVASCULAR: Regular rate and rhythm without murmurs, gallops, or rubs. RESPIRATORY: Breath sounds equal bilaterally. No accessory muscle use. GASTROINTESTINAL: Abdomen soft, non-tender, nondistended. MUSCULOSKELETAL: No cyanosis, or edema. BACK: Nontender without obvious deformity. No CVA tenderness. Assessment and Plan - Plan IMPRESSION: 1. Chronic obstructive pulmonary disease with mild exacerbation. 1. Hypertension. 2. Diabetes mellitus. 3. End-stage renal disease. 4. History of coronary artery disease. 5. History of cancer of the bladder. PLAN: Aerosol nebs IV Solumedrol Cont Abx Bedside PFT DC plans underway
[2018-09-24] MEDS: MethylPREDNISolone Sod Succinate Inj 40 MG/ML Vial IV.PUSH SCH ×2 (05:36→12:55)
--- NOTE | 2018-09-24 07:31 | P.PN ---
Subjective Interval history: Follow-up on patient with COPD exacerbation. Patient is n.p.o. for kidney biopsy later this morning. Patient states he is breathing much better. He states his breathing has returned to baseline. He denies any complaints of fever, chills, shortness of breath, chest pain, nausea, vomiting or abdominal pain. He states the Megace is helping him stay night his appetite. He denies any dyspnea with ambulation. Physical Exam Vital signs: Vital Signs 09/23/18 08:00 09/23/18 15:17 09/23/18 16:00 Temperature 97.7 F 97.9 F Pulse Rate 85 111 H 106 H Respiratory Rate 18 20 18 Blood Pressure 162/90 H 142/75 H Pulse Oximetry 95 98 09/23/18 18:28 09/23/18 19:56 09/23/18 20:00 Temperature 97.3 F L Pulse Rate 91 H 113 H 119 H Respiratory Rate 20 21 Blood Pressure 117/75 Pulse Oximetry 98 09/24/18 00:03 09/24/18 00:13 09/24/18 03:45 Temperature 98.0 F 97.6 F Pulse Rate 111 H 111 H 107 H Respiratory Rate 18 18 Blood Pressure 142/72 H 133/73 Pulse Oximetry 98 94 L 09/24/18 04:00 Temperature Pulse Rate 104 H Respiratory Rate Blood Pressure Pulse Oximetry Intake & Output 09/23/18 09/24/18 09/24/18 18:59 06:59 18:59 Intake Total 980 / 980 Output Total 1999 Balance -1020 / -1020 Weight 53.1 kg Intake: Oral 980 / 980 Output: Hemodialysis Amount 1999 Other: # Voids 0 3 Date of Last Bowel Movement 09/21/18 09/24/18 # Bowel Movements 0 1 Narrative: GENERAL: Extremely thin very pleasant male patient, INAD. Awake and alert. Appears comfortable sitting on sofa next to window. SKIN: Warm and dry. HEENT: Atraumatic. Normocephalic. Pupils equal and round. No scleral icterus. No injection or drainage. No nasal bleeding or discharge. Mucous membranes pink and moist. Poor dentition. +oral thrush, improving. NECK: Trachea midline. CARDIOVASCULAR: Regular rate and rhythm. RESPIRATORY: No accessory muscle use. Fair air entry. Lungs diminished to auscultation throughout. No wheezing noted. GASTROINTESTINAL: Abdomen soft, non-tender, nondistended. +BS. MUSCULOSKELETAL: Extremities without clubbing, cyanosis, or edema. No obvious deformities. NEUROLOGICAL: Awake and alert. No obvious cranial nerve deficits. Motor grossly within normal limits. Able to move all extremities spontaneously. Normal speech. PSYCHIATRIC: Appropriate mood and affect; insight and judgment normal. Results - Labs CBC & Chem 7: 09/24/18 11:58 09/23/18 08:23 Laboratory Results - last 24 hr 09/23/18 09/23/18 09/23/18 08:09 08:23 11:52 Sodium 129 L Potassium 5.5 H D Chloride 89 L D Carbon Dioxide 22.7 Anion Gap 17 H BUN 77 H Creatinine 8.61 H Estimated GFR 7 L POC Glucose 161 H 91 Random Glucose 140 H Calcium 9.1 Phosphorus 6.1 H Albumin 3.2 L 09/23/18 09/23/18 17:35 20:01 Sodium Potassium Chloride Carbon Dioxide Anion Gap BUN Creatinine Estimated GFR POC Glucose 169 H 177 H Random Glucose Calcium Phosphorus Albumin Assessment and Plan - Plan 68 y/o male with history of ESRD- on HD,COPD, hypertension who presented to ER with shortness of breath. COPD exacerbation, resolved Ongoing tobaccoism -Pulmonary following, appreciate assistance. Patient completed 5 days of azithromycin as outpatient. PFTs ordered. -Continue on IV steroids, bronchodilatory therapy - transition to oral steroids -Mucinex BID -continue to monitor respiratory status - currently satting 94% on RA. -discussed smoking cessation/counseling ESRD on HD patient dialyzed yesterday out of his regular TTSa schedule due to mild fluid overload -Nephrology managing HD, appreciate assistance. Patient for HD today to resume normal schedule. MOISE Carrington, patient cleared for discharge following HD. Hyperkalemia K 5.5 -management per Nephrology -repeat BMP ordered for today DM blood sugars poorly controlled on IV steroids -diabetic heart healthy renal diet -continue accuchecks and cover with insulin sliding scale -started on Levemir 5u BID while on IV steroids. Patents Hgb 6.2. He does not take any diabetic medications at home due to hypoglycemic episode. Do not plan to discharge on long-acting insulin. Elevated troponins EKG with no ischemic changes noted patient has no cardiac complaints -troponins elevated but flat -suspect secondary to ESRD -continue on ASA daily Hx of bladder cancer Complex kidney cyst -patient NPO for kidney bx scheduled for later this morning. Patient will follow up with Nephrology as outpatient for results Protein calorie malnutrition Poor appetite BMI 16.7 -patient agreeable to appetite supplement -Consult professional architect, appreciate recs -trial of Megace - patient reports increased appetite on Megace. Will continue at discharge. -PT eval/tx - no needs Tachycardia Episode of elevated heart rate in the 120s, suspect multifactorial secondary to albuterol use and possible dehydration secondary to dialysis -Events on telemetry -EKG shows sinus tach -cardiac enzymes unremarkable -Now on Xopenex, heart rate improved Oral thrush -Nystatin s/s DVT prophylaxis -Heparin sq Discussed Condition With: patient, nursing staff, Dr. Massey Discharge Planning: Possible discharge later today if cleared by pulmonary medicine
[2018-09-24 07:42] LABS: INR 1.1 Ratio; Prothrombin Time 10.9 sec (9.8-11.6)
[2018-09-24] MEDS: RESP: Levalbuterol 1.25 MG/3 ML Neb (SCH) NEB ×3 (08:33→19:51)
[2018-09-24] MEDS: Nystatin Liq 500,000 UNIT/5 ML UDC SWISH-SWAL SCH ×3 (08:48→18:24)
[2018-09-24] MEDS: Insulin NovoLOG Aspart Correctional Sugar Inj SQ SCH ×3 (08:48→18:24)
[2018-09-24] MEDS: Insulin Detemir Inj 1,000 UNIT/10 ML Vial SQ SCH (08:48)
[2018-09-24] MEDS: Heparin - SQ 10,000 UNITS/ML Vial SQ SCH (08:48)
[2018-09-24] MEDS: Megestrol Acetate Liq 400 MG/10 ML UDC PO SCH (08:48)
[2018-09-24] MEDS: guaiFENesin 600 MG ER Tablet PO SCH (08:48)
[2018-09-24] MEDS ORDERED: fentaNYL Citrate Inj 250 MCG/5 ML Ampul ONE (09:09)
[2018-09-24] MEDS ORDERED: Labetalol HCl Inj 100 MG/20 ML Vial ONE (10:18)
[2018-09-24 11:00] LABS: Hematocrit 40.8 % (39.0-51.0); Hemoglobin 14.3 gm/dL (13.0-17.0)
--- NOTE | 2018-09-24 11:14 | P.PNNP ---
Subjective Interval history: Seen in recovery, s/p biopsy. Denies any shortness of breath, nausea, or vomiting. Hemodialysis planned for today. <Page Carrington - Last Filed: 09/24/18 11:11> Physical Exam Vital signs: Vital Signs 09/23/18 15:17 09/23/18 16:00 09/23/18 18:28 Temperature 97.9 F Pulse Rate 111 H 106 H 91 H Respiratory Rate 20 18 Blood Pressure 142/75 H Pulse Oximetry 98 09/23/18 19:56 09/23/18 20:00 09/24/18 00:03 Temperature 97.3 F L 98.0 F Pulse Rate 113 H 119 H 111 H Respiratory Rate 20 21 18 Blood Pressure 117/75 142/72 H Pulse Oximetry 98 98 09/24/18 00:13 09/24/18 03:45 09/24/18 04:00 Temperature 97.6 F Pulse Rate 111 H 107 H 104 H Respiratory Rate 18 Blood Pressure 133/73 Pulse Oximetry 94 L 09/24/18 08:00 09/24/18 08:34 09/24/18 10:40 Temperature 97.8 F 97.8 F Pulse Rate 104 H 100 H 90 Respiratory Rate 20 18 18 Blood Pressure 151/76 H 148/86 H Pulse Oximetry 94 L 98 90 L 09/24/18 11:04 Temperature Pulse Rate 100 H Respiratory Rate 20 Blood Pressure 141/85 H Pulse Oximetry 93 L Intake & Output 09/23/18 09/24/18 09/24/18 18:59 06:59 18:59 Intake Total 980 / 980 Output Total 1999 Balance -1020 / -1020 Weight 53.1 kg Intake: Oral 980 / 980 Output: Hemodialysis Amount 1999 Other: # Voids 0 3 Date of Last Bowel Movement 09/21/18 09/24/18 09/24/18 # Bowel Movements 0 1 Narrative: GENERAL: Thin very pleasant male patient, NAD. Awake and alert. Appears comfortable. SKIN: Warm and dry. CARDIOVASCULAR: Regular rate and rhythm. AVF with positive thrill and bruit. RESPIRATORY: No accessory muscle use. lungs diminished to auscultation. GASTROINTESTINAL: Abdomen soft, non-tender, nondistended. +BS. MUSCULOSKELETAL: Extremities without clubbing, cyanosis, or edema. No obvious deformities. NEUROLOGICAL: Awake and alert. No obvious cranial nerve deficits. Motor grossly within normal limits. Able to move all extremities spontaneously. Normal speech. <Page Carrington - Last Filed: 09/24/18 11:11> Assessment and Plan - Assessment (1) End-stage renal disease on hemodialysis Code(s): N18.6 - End stage renal disease; Z99.2 - Dependence on renal dialysis Status: Acute Plan: End stage renal disease on hemodialysis Friday//Friday Hemodialysis planned for today. Plans for possible discharge today. (2) Protein calorie malnutrition Code(s): E46 - Unspecified protein-calorie malnutrition Status: Acute Plan: Dietary consult. Megace started as appetite stimulant. (3) Diabetes Code(s): E11.9 - Type 2 diabetes mellitus without complications Status: Acute Plan: Recommend Blood sugars between 140 mg/dl to 180 mg/dl while hospitalized. (4) COPD exacerbation Code(s): J44.1 - Chronic obstructive pulmonary disease with (acute) exacerbation Status: Acute Plan: On antibiotics and steroids. (5) Hx of bladder cancer Code(s): Z85.51 - Personal history of malignant neoplasm of bladder Status: Acute Plan: Hx of bladder cancer, Complex kidney cyst s/p kidney bx <Page Carrington - Last Filed: 09/24/18 11:11> - Assessment (1) End-stage renal disease on hemodialysis Code(s): N18.6 - End stage renal disease; Z99.2 - Dependence on renal dialysis Status: Acute Plan: Patient seen and examined, agree with above. Breathing is much better. Possible discharge, continue HD as schedule. (2) Protein calorie malnutrition Code(s): E46 - Unspecified protein-calorie malnutrition Status: Acute (3) Diabetes Code(s): E11.9 - Type 2 diabetes mellitus without complications Status: Acute (4) COPD exacerbation Code(s): J44.1 - Chronic obstructive pulmonary disease with (acute) exacerbation Status: Acute (5) Hx of bladder cancer Code(s): Z85.51 - Personal history of malignant neoplasm of bladder Status: Acute <Rosita Mohamud - Last Filed: 09/28/18 21:01>
--- NOTE | 2018-09-24 12:50 | CT ---
EXAM DATE: 09/24/2018 10:50 AM EST AGE/SEX: 68 years / Male INDICATIONS: Right renal mass CLINICAL DATA: This is the patient's initial encounter. Patient reports that signs and symptoms have been present for 1 day and indicates a pain score of 0/10. MEDICAL/SURGICAL HISTORY: Chronic obstructive pulmonary disease. Hypertension. Renal disease, end stage. None. COMPARISON: [facility], CT ABDOMEN AND PELVIS W/O CONTRAST, 05/16/2017. . SEDATION TIME (min): 30 BIOPSY SITE: Right renal MEDICATION(S): 2.5 mg midazolam (Versed) IV 125 mcg fentanyl (Sublimaze) IV DEVICE(S): 18 gauge BARD biopsy needle One . . PROCEDURE: CT guided Right renal mass biopsy Prior to the procedure informed consent was obtained. Any appropriate prior imaging studies were rev iewed. Using automated exposure control and adjustment of the mA and/or kV according to patient size, radiat ion dose was kept as low as reasonably achievable to obtain optimal diagnostic quality images. DICOM format image data is available electronically for review and comparison. The site was prepped in a sterile fashion. Full sterile technique was used, including cap, mask, bernice rile gloves and gown and a large sterile sheet. Hand hygiene and 2% chlorhexidine and/or betadine/al cohol prep was utilized per protocol for cutaneous antisepsis. The skin and subcutaneous tissues wer e infiltrated with local anesthetic solution. With CT guidance the previously identified target was localized. Biopsy was performed using the presc ribed needle as above. Adequate hemostasis was obtained with compression at the puncture site. Follow-up CT scan reveals no hemorrhage. The patient tolerated the procedure well and there were no complications. The patient was returned to the Radiology Outpatient Unit in stable condition. CONCLUSION: Uncomplicated CT guided core biopsy of right renal mass as described. Electronically signed by: Eh Sagastume MD 09/24/2018 12:49 PM EST
[2018-09-24 13:09] LABS: Baso % (Auto) 0.1 % (0.0-2.0); Hemoglobin 15.3 gm/dL (13.0-17.0); Lymph # (Auto) 0.5 th/mm3 (1.0-4.8); Lymph % (Auto) 3.2 % (9.0-44.0); Mean Corpuscular HGB Conc 34.8 % (32.0-36.0); Mean Corpuscular Hemoglobin 32.9 pg (27.0-34.0); Mean Corpuscular Volume 94.6 fL (80.0-100.0); Mean Platelet Volume 9.1 fL (7.0-11.0); Mono # (Auto) 0.5 th/mm3 (0.0-0.9); Neut # (Auto) 14.3 th/mm3 (1.8-7.7); Neut % (Auto) 93.7 % (16.0-70.0); Platelet Count 134 th/mm3 (150-450); Red Blood Count 4.65 mil/mm3 (4.50-5.90); Red Cell Distribution Width 12.8 % (11.6-17.2); White Blood Count 15.2 th/mm3 (4.0-11.0)
--- NOTE | 2018-09-24 14:28 | P.DS ---
Date of admission: 09/21/18 11:44 Primary care physician: Agapito Cole Attending physician on discharge: Aye Massey Anticipated date of discharge: 09/24/18 Brief History from admission: patient is a 68 y/o male with history of ESRD- on HD,COPD, hypertension who presented to ER with shortness of breath. he says that his sob started a week ago and it gradually got worse. it was associated with occasional dry cough. he denies any fever or chills but had some ' chest tightness'. he was prescribed Z- Pack which he took till last Friday with no significant relief. his last HD was on Friday. he says that he went to his PCP office today and he was advised to come to the hospital. he was placed on oxygen via N/C and was on three liters of oxygen at the time of my evaluation. Patient update on day of discharge: Patient seen and examined. Patient states he is doing very well. He reports his breathing has returned to baseline. He does not voice any new medical concerns or complaints. DS: Diagnosis - Discharge Diagnosis (1) COPD exacerbation Status: Acute (2) Complex renal cyst Status: Acute (3) Diabetes Status: Acute (4) End-stage renal disease on hemodialysis Status: Acute (5) Hx of bladder cancer Status: Acute (6) Protein calorie malnutrition Status: Acute DS: Summary Hospital Course: Patient admitted with COPD exacerbation. Patient was started on steroids, mucolytics and bronchodilators. Patient did just completed a course of azithromycin as an outpatient. Patient had elevated potassium in the ED and was treated with Kayexalate, insulin and bicarbonate. Patient was seen in consultation by nephrology for resumption of his hemodialysis schedule. Patient was also seen in consultation by Pulmonary medicine. Patient improved clinically. Patient had a history of complex renal cyst and underwent kidney biopsy performed by IR as ordered by nephrology. Patient reached maximum benefit from his hospitalization. He was cleared for discharge from [facility]. Patient was discharged to home in satisfactory condition. - Time Spent with Patient Total time spent providing and/or coordinating discharge services: Greater than 30 minutes - Quality: VTE Deep Vein Thrombosis/Pulmonary Embolism Present on Admission: No Exam Vital signs: Vital Signs 09/23/18 15:17 09/23/18 16:00 09/23/18 18:28 Temperature 97.9 F Pulse Rate 111 H 106 H 91 H Respiratory Rate 20 18 Blood Pressure 142/75 H Pulse Oximetry 98 09/23/18 19:56 09/23/18 20:00 09/24/18 00:03 Temperature 97.3 F L 98.0 F Pulse Rate 113 H 119 H 111 H Respiratory Rate 20 21 18 Blood Pressure 117/75 142/72 H Pulse Oximetry 98 98 09/24/18 00:13 09/24/18 03:45 09/24/18 04:00 Temperature 97.6 F Pulse Rate 111 H 107 H 104 H Respiratory Rate 18 Blood Pressure 133/73 Pulse Oximetry 94 L 09/24/18 08:00 09/24/18 08:34 09/24/18 10:40 Temperature 97.8 F 97.8 F Pulse Rate 104 H 100 H 90 Respiratory Rate 20 18 18 Blood Pressure 151/76 H 148/86 H Pulse Oximetry 94 L 98 90 L 09/24/18 11:04 09/24/18 12:00 09/24/18 13:14 Temperature 98.1 F Pulse Rate 100 H 102 H 91 H Respiratory Rate 20 18 18 Blood Pressure 141/85 H 138/62 Pulse Oximetry 93 L 94 L Intake & Output 09/23/18 09/24/18 09/24/18 18:59 06:59 18:59 Intake Total 980 / 980 Output Total 1999 Balance -1020 / -1020 Weight 53.1 kg Intake: Oral 980 / 980 Output: Hemodialysis Amount 1999 Other: # Voids 0 3 Date of Last Bowel Movement 09/21/18 09/24/18 09/24/18 # Bowel Movements 0 1 Narrative: GENERAL: Extremely thin very pleasant male patient, INAD. Awake and alert. Appears comfortable sitting on sofa next to window. SKIN: Warm and dry. HEENT: Atraumatic. Normocephalic. Pupils equal and round. No scleral icterus. No injection or drainage. No nasal bleeding or discharge. Mucous membranes pink and moist. Poor dentition. +oral thrush, improving. NECK: Trachea midline. CARDIOVASCULAR: Regular rate and rhythm. RESPIRATORY: No accessory muscle use. Fair air entry. Lungs diminished to auscultation throughout. No wheezing noted. GASTROINTESTINAL: Abdomen soft, non-tender, nondistended. +BS. MUSCULOSKELETAL: Extremities without clubbing, cyanosis, or edema. No obvious deformities. NEUROLOGICAL: Awake and alert. No obvious cranial nerve deficits. Motor grossly within normal limits. Able to move all extremities spontaneously. Normal speech. PSYCHIATRIC: Appropriate mood and affect; insight and judgment normal. Results Procedures completed during hospitalization: 09/24/18 CT guided right renal mass biopsy Labs on day of discharge: Labs from last 24 hours 09/24/18 09/24/18 09/24/18 11:58 11:57 10:50 WBC 15.2 H RBC 4.65 Hgb 15.3 14.3 Hct 44.0 40.8 MCV 94.6 MCH 32.9 MCHC 34.8 RDW 12.8 Plt Count 134 L MPV 9.1 Neut % (Auto) 93.7 H Lymph % (Auto) 3.2 L [place] % (Auto) 3.0 Eos % (Auto) 0.0 Baso % (Auto) 0.1 Neut # (Auto) 14.3 H Lymph # (Auto) 0.5 L [place] # (Auto) 0.5 Eos # (Auto) 0.0 Baso # (Auto) 0.0 WBC Differential . Differential Comment Auto diff final PT INR POC Glucose 183 H 09/24/18 09/24/18 09/23/18 07:58 07:11 20:01 WBC RBC Hgb Hct MCV MCH MCHC RDW Plt Count MPV Neut % (Auto) Lymph % (Auto) [place] % (Auto) Eos % (Auto) Baso % (Auto) Neut # (Auto) Lymph # (Auto) [place] # (Auto) Eos # (Auto) Baso # (Auto) WBC Differential Differential Comment PT 10.9 INR 1.1 POC Glucose 138 H 177 H 09/23/18 17:35 WBC RBC Hgb Hct MCV MCH MCHC RDW Plt Count MPV Neut % (Auto) Lymph % (Auto) [place] % (Auto) Eos % (Auto) Baso % (Auto) Neut # (Auto) Lymph # (Auto) [place] # (Auto) Eos # (Auto) Baso # (Auto) WBC Differential Differential Comment PT INR POC Glucose 169 H - Impressions ITS Impressions Chest X-Ray 09/21/18 09:38 CONCLUSION: COPD changes. No acute abnormality. Renal Biopsy CT 09/24/18 00:00 CONCLUSION: Uncomplicated CT guided core biopsy of right renal mass as described. Discharge Plan - Discharge Disposition Patient Disposition: 01 Discharge Home - Discharge Condition Condition: Stable - Discharge Order Discharge Orders: Discharge Order (Routine); Ordered 09/23/18 Ordered By: Sammi Cottrell - Discharge Details Anticipated Discharge Date: 09/23/18 Discharge Comment: Discharge pending Nephrology and Pulmonary medicine clearance - Physicians Team Attending Provider: Aye Massey Other Providers: Rosita Mohamud MD ; Lucio Rojas MD ; Flores Tanner
--- NOTE | 2018-09-24 18:27 | P.PNPL ---
Subjective Interval history: 68 YOAA male with COPD exac, ESRD Breathing betetr Wheezing improved Appetite improving. Anxious to go home Physical Exam Vital signs: Vital Signs 09/23/18 18:28 09/23/18 19:56 09/23/18 20:00 Temperature 97.3 F L Pulse Rate 91 H 113 H 119 H Respiratory Rate 20 21 Blood Pressure 117/75 Pulse Oximetry 98 Pulse Oximetry [Exertion on Room Air] Pulse Oximetry [Resting on Room Air] 09/24/18 00:03 09/24/18 00:13 09/24/18 03:45 Temperature 98.0 F 97.6 F Pulse Rate 111 H 111 H 107 H Respiratory Rate 18 18 Blood Pressure 142/72 H 133/73 Pulse Oximetry 98 94 L Pulse Oximetry [Exertion on Room Air] Pulse Oximetry [Resting on Room Air] 09/24/18 04:00 09/24/18 08:00 09/24/18 08:06 Temperature 97.8 F Pulse Rate 104 H 104 H 98 H Respiratory Rate 20 Blood Pressure 151/76 H Pulse Oximetry 94 L Pulse Oximetry [Exertion on Room Air] Pulse Oximetry [Resting on Room Air] 09/24/18 08:34 09/24/18 10:40 09/24/18 11:04 Temperature 97.8 F Pulse Rate 100 H 90 100 H Respiratory Rate 18 18 20 Blood Pressure 148/86 H 141/85 H Pulse Oximetry 98 90 L 93 L Pulse Oximetry [Exertion on Room Air] Pulse Oximetry [Resting on Room Air] 09/24/18 12:00 09/24/18 13:14 09/24/18 17:22 Temperature 97.9 F Pulse Rate 94 H 91 H Respiratory Rate 20 18 Blood Pressure 148/71 H Pulse Oximetry 95 Pulse Oximetry [Exertion on Room Air] 89 L Pulse Oximetry [Resting on Room Air] 92 L Intake & Output 09/23/18 09/24/18 09/24/18 18:59 06:59 18:59 Intake Total 980 / 980 Output Total 1999 / 1999 3000 / 3000 Balance -1020 / -1020 -3000 / -3000 Weight 53.1 kg Intake: Oral 980 / 980 Output: Hemodialysis Amount 1999 3000 / 3000 Other: # Voids 0 3 Date of Last Bowel Movement 09/21/18 09/24/18 09/24/18 # Bowel Movements 0 1 GENERAL: Elderly AA amle, NAD SKIN: Warm and dry. HEAD: Normocephalic. EYES: No scleral icterus. No injection or drainage. NECK: Supple, trachea midline. No JVD or lymphadenopathy. CARDIOVASCULAR: Regular rate and rhythm without murmurs, gallops, or rubs. RESPIRATORY: Breath sounds equal bilaterally. No accessory muscle use. GASTROINTESTINAL: Abdomen soft, non-tender, nondistended. MUSCULOSKELETAL: No cyanosis, or edema. BACK: Nontender without obvious deformity. No CVA tenderness. Assessment and Plan - Plan IMPRESSION: 1. Chronic obstructive pulmonary disease with mild exacerbation. 1. Hypertension. 2. Diabetes mellitus. 3. End-stage renal disease. 4. History of coronary artery disease. 5. History of cancer of the bladder. PLAN: Aerosol nebs Cont Abx Bedside PFT Stable on RA DC plans for home Will FU in office 2 weeks
[2018-09-24 18:56] VITALS: BP 114/64; PULSE 108; RESP 20; TEMP 97.4; O2SAT 93
== END 2018-09-24 19:49 | disposition home or self-care (01) ==
LOC: NEPE 09:15 → NEDA 11:44 → N05 13:01
PROVIDERS: ADMIT Family Medicine; ATTEND Family Medicine